=== PATIENT | female | born 1945 | race Caucasian/White ===

== ENCOUNTER 2020-02-20 15:56 | Outpatient (CLI) | payer OTHER, SELFPAY ==
--- NOTE | 2020-02-20 16:14 | ECG_ITS ---
Measurements Intervals [place] Rate: 94 P: 60 [place]: 191 QRS: 56 QRSD: 81 T: 35 QT: 344 QTc: 431 Interpretive Statements SINUS RHYTHM ATRIAL PREMATURE COMPLEX BASELINE ARTIFACT- I, II, AVR BORDERLINE ECG Electronically Signed On 02-21-2020 7:07:09 CDT by Mario Higgins D.O.
== END 2020-02-20 15:57 | disposition home or self-care (01) ==
PROVIDERS: PCP Family Medicine
DX: R06.09 Other forms of dyspnea (principal)
CPT/HCPCS: 93005

== ENCOUNTER 2020-03-11 12:59 | Outpatient (CLI) | payer OTHER, SELFPAY ==
--- NOTE | ~2020-03-11 | CT_ITS ---
EXAMINATION: CT abdomen pelvis wo/w con DATE: 03/11/2020 15:02 INDICATION: Microscopic hematuria TECHNIQUE: Computed tomography (CT) of the abdomen and pelvis was performed without intravenous contr ast. CT of the abdomen and pelvis was then performed with a total of 130 mL Omnipaque 350 intravenous contrast using a double-bolus technique for simultaneous opacification of the renal parenchyma and r enal collecting system. The dose-length product (DLP) was 2946.86 mGy-cm. Automated exposure control and iterative reconstruction technique were employed. COMPARISON: 07/17/2019 FINDINGS: There are stable nodules of the left lower lobe measuring up to 5 mm, likely benign. Depend ent atelectasis is noted. There is cardiomegaly. A small sliding hiatal hernia is seen. There are carmen gical changes of the stomach. The liver, pancreas, and adrenal glands are normal. Punctate calcificat ions in an otherwise normal spleen likely represent healed granulomatous disease. The gallbladder is surgically absent. No suspicious renal or urothelial lesion is identified. No stones are identified i n the kidneys, ureters, or bladder. There is no hydronephrosis or hydroureter. An extrarenal pelvis i s noted on the right. There is severe lumbar spondylosis. There is a stable 2.4 cm rim calcified mass in the anterior midline subcutaneous tissues, consistent with fat necrosis. There are multiple ventr al hernias containing fat. IMPRESSION: 1. No CT correlate for the patient's symptoms. Reviewed, dictated and finalized at location A.
--- NOTE | ~2020-03-11 | XR_ITS ---
EXAMINATION: XR abdomen/kub 1V INDICATION: Microscopic hematuria TECHNIQUE: Supine views of the abdomen were obtained on 2 radiographs. COMPARISON: None FINDINGS: Surgical changes are noted in the left upper quadrant. No abnormal calcification is identif ied. The bowel gas pattern is normal. The visualized lung bases are clear. There is severe lumbar spo ndylosis. IMPRESSION: 1. No radiographic correlate for the patient's symptoms. Reviewed, dictated and finalized at location A.
[2020-03-11 14:33] LABS: Estimated Glomerular Filt Rate > 60
== END 2020-03-11 13:00 | disposition home or self-care (01) ==
PROVIDERS: PCP Family Medicine; Visit Provider Urology
DX: R31.29 Other microscopic hematuria (principal)
CPT/HCPCS: 36415; 74018; 74178; Q9967

== ENCOUNTER 2020-07-18 08:33 | Emergency (ER) | payer OTHER, SELFPAY ==
[2020-07-18] VITALS (29 sets, daily range): BP systolic 136–175; BP diastolic 72–98; PULSE 63–98; RESP 12–37; TEMP 36.6; O2SAT 92–98
--- NOTE | ~2020-07-18 | CT_ITS ---
EXAMINATION: CT abdomen pelvis w con DATE: 07/18/2020 10:13 INDICATION: Abdominal pain TECHNIQUE: Computed tomography (CT) of the abdomen and pelvis was performed with 100 cc Omnipaque 350 intravenous contrast. The dose-length product was 1494.86 mGy-cm. Automated exposure control and ite rative reconstruction technique were employed. COMPARISON: CT dated 03/11/2020. FINDINGS: Heart size normal. No significant pleural or pericardial effusion. There are surgical colvin es of the stomach. The liver, spleen, pancreas, adrenal glands and kidneys are unremarkable. There ar e multiple small fat-containing ventral hernias including an umbilical hernia. Gallbladder not identi fied, likely surgically absent. No lymphadenopathy. Stable 5 mm left lower lobe nodule, likely benign . Stable rim calcified soft tissue nodule anterior midline subcutaneous tissues, likely fat necrosis. Moderate lower thoracic and lumbar spondylosis. IMPRESSION: 1. No acute abnormality. No findings to account for patient's symptoms. Reviewed, dictated and finalized at location A.
--- NOTE | 2020-07-18 09:11 | ECG_ITS ---
Measurements Intervals [place] Rate: 84 P: 38 [place]: 158 QRS: 60 QRSD: 88 T: 23 QT: 383 QTc: 454 Interpretive Statements SINUS RHYTHM WITH SINUS ARRHYTHMIA BORDERLINE ST ABNORMALITY- ANTEROLAT/INF LEADS BASELINE ARTIFACT- I, III BORDERLINE ECG Electronically Signed On 07-18-2020 20:01:32 CDT by Mario Higgins D.O.
[2020-07-18 09:22] LABS: Basophils Absolute Auto 0.1 K/mm3 (0.0-0.1); Basophils Percent Auto 1.4 % (0.2-1.2); Eosinophils Absolute Auto 0.2 K/mm3 (0-0.3); Eosinophils Percent Auto 3.7 % (0-4.4); Hematocrit 38.3 % (37.0-47.0); Hemoglobin 11.9 g/dL (12.0-15.0); Immature Granulocyte Absolute 0.01 K/mm3 (0.00-0.031); Immature Granulocyte Percent A 0.2 % (0-0.5); Lymphocytes Absolute Auto 1.86 K/mm3 (0.9-3.2); Lymphocytes Percent Auto 32.5 % (18.3-44.2); Mean Corpuscular HGB Conc 31.1 g/dl (32-36); Mean Corpuscular Hemoglobin 28.7 pg (26-34); Mean Corpuscular Volume 92.3 fl (80-100); Mean Platelet Volume 12.2 fl (7.4-10.4); Monocytes Absolute Auto 0.7 K/mm3 (0.1-0.6); Monocytes Percent Auto 11.4 % (2.6-8.5); Neutrophils Absolute Auto 2.9 K/mm3 (1.3-6.7); Neutrophils Percent Auto 50.8 % (45.5-73.1); Platelet Count Result 232 k/mm3 (150-375); Red Blood Count 4.15 M/mm3 (4.2-5.4); Red Cell Distribution Width 14.4 % (11.5-14.5); White Blood Count 5.7 K/mm3 (4.5-10.0)
[2020-07-18] MEDS: BELLADONNA ALK/PHENOB ELIX 10 ML, MAG HYDROX/ALUMINUM HYD/SIMETH 30 ML, LIDOCAINE HCL 2... PO (09:22)
[2020-07-18 09:35] LABS: Alanine Aminotransferase 11 U/L (4-35); Albumin Level 3.9 g/dL (3.5-5.1); Alkaline Phosphatase 106 U/L (38-126); Anion Gap 7 mmol/L (8-16); Aspartate Amino Transferase 23 U/L (14-36); Bilirubin,Total 0.7 mg/dL (0.2-1.3); Blood Urea Nitrogen 17 mg/dL (7-17); Calcium 8.7 mg/dL (8.4-10.2); Carbon Dioxide 26 mmol/L (22-30); Chloride 102 mmol/L (98-107); Estimated CRCL calculation 72 ml/min; Estimated Glomerular Filt Rate > 60; Glucose 95 mg/dL (65-105); Lipase 59 U/L (23-300); Potassium 3.9 mmol/L (3.4-5.0); Sodium 135 mmol/L (137-145)
--- NOTE | 2020-07-18 09:36 | ED.GENADULT ---
HPI - General Adult General Chief complaint: Chest Pain Stated complaint: Chest and ABD Pain Time Seen by Provider: 07/18/20 08:52 Source: patient History of Present Illness HPI narrative: Patient is a 75 y/o female complaining of intermittent epigastric pain for 1 week. She describes her pain as burning sensation and rates it as 7/10. Her pain radiates to her chest pain. There is no alleviating or exacerbating factor. She took laxative which did not help. She denies any vomiting or diarrhea. Related Data Home Medications Medication Instructions Recorded Confirmed furosemide 40 mg tablet 40 mg PO QAM PRN 10/27/19 02/02/20 indapamide 2.5 mg tablet 2.5 mg PO DAILY 10/27/19 02/02/20 magnesium 200 mg tablet See Rx Instructions PO DAILY 10/27/19 02/02/20 vitamin B12 1,000 mcg-folic acid 1 tablet SUBLINGUAL DAILY tablet 10/27/19 02/02/20 400 mcg sublingual tablet metoprolol succinate PO DAILY 07/18/20 Allergies Allergy/AdvReac Type Severity Reaction Status Date / Time No Known Allergies Allergy Verified 07/18/20 08:52 Review of Systems Constitutional: Constitutional: Denies chills, Denies fever(s), Denies headache(s) and Denies weakness Eyes: Eyes: Denies blurry vision ENT: Denies headache(s) and Denies neck pain Cardiovascular: Cardiovascular: Reports chest pain and Denies dyspnea Respiratory: Respiratory: Denies cough and Denies dyspnea Gastrointestinal: Gastrointestinal: Reports abdominal pain, Denies diarrhea, Denies nausea and Denies vomiting Genitourinary: Genitourinary: Denies hematuria and Denies dysuria Musculoskeletal: Musculoskeletal: Denies back pain and Denies neck pain Neurologic: Denies headache(s) and Denies weakness [facility] Past Medical History Medical History Bilateral knee pain Essential (primary) hypertension Left upper arm pain Normal colonoscopy (~07/2019) Sleep apnea Surgical History Surgical History History of foot surgery (~02/2017) Left History of gastric bypass (~1999) History of tubal ligation (~1979) Family History Family History Mother Family history of arthritis Family history of diabetes mellitus in first degree relative Family history of congestive heart failure Family history of heart disease in male family member before age 55 Carcinoma of colon Sibling Family history of diabetes mellitus in first degree relative Family history of coronary artery disease Family history of heart disease in male family member before age 55 Diabetes mellitus Cerebrovascular accident Family history of malignant neoplasm of breast in first degree relative Grandparent Diabetes mellitus Asthma Family history of malignant neoplasm Carcinoma of colon Father Family history of lung cancer Other Depression Family history of obesity Hypertension Social History Social History Smoking status: Never smoker Second hand tobacco smoke exposure: No Alcohol intake: never Substance use: never Gender identity (if verbalized by the patient): Female Exam Const: General: no acute distress and well developed Nutritional Appearance: obese Orientation/consciousness: oriented to person, oriented to place, oriented to time and patient oriented x3 HENMT: Head: normocephalic Ears: external ears normal General nose exam: Normal external nose present Eyes: General: appearance normal, both eyes and all related structures Conjunctivae: conjunctivae normal Neck: Neck: normal visual inspection and full ROM Chest: Chest palpation & inspection: normal inspection of the chest and no tenderness Resp: Effort & Inspection: normal respiratory effort Auscultation: clear to auscultation bilaterally Cardio: Rate: regular rate Rhythm: regular rhythm GI: GI Palp: No ab
[2020-07-18 09:47] LABS: Troponin I < 0.012 ng/mL (0.000-0.034)
[2020-07-18 10:28] LABS: Add Urine Microscopic? YES; Appearance Urine Cloudy (Clear); Bacteria Urine Trace /hpf; Bilirubin Urine Negative (Negative); Blood Urine 1+ (Negative); Color Urine Yellow (Yellow); Glucose Urine UA Negative (Negative); Ketones Urine Negative (Negative); Leukocyte Esterase Ur 3+ LEU/UL (Negative); Mucus Urine Rare /lpf; Nitrate Urine Negative (Negative); Protein Urine Negative (Negative); RBC Urine 21-50 /hpf (0-2); Specific Grav Ur 1.011 (1.001-1.035); Squamous Epithelial Cell Urine Moderate /hpf (Few); Urobilinogen Urine Negative mg/dL (<2.0); WBC Urine 16-20 /hpf
[2020-07-18 12:43] LABS: Troponin I < 0.012 ng/mL (0.000-0.034)
== END 2020-07-18 14:05 | disposition home or self-care (01) ==
PROVIDERS: Emergency Provider Emergency Medicine; PCP Family Medicine
DX: R10.13 Epigastric pain (principal); R07.9 Chest pain, unspecified; N39.0 Urinary tract infection, site not specified; I10 Essential (primary) hypertension; G47.30 Sleep apnea, unspecified; Z98.84 Bariatric surgery status; R94.31 Abnormal electrocardiogram [ECG] [EKG]
CPT/HCPCS: 36415; 74177; 80053; 81001; 83690; 84484; 85025; 87086; 87088; 93005; 99284; A9270; Q9967

== ENCOUNTER 2020-07-27 02:41 | Outpatient (CLI) | payer OTHER, SELFPAY ==
[2020-07-27 18:16] LABS: SARS-CoV-2 RNA PCR Negative
== END 2020-07-27 02:42 | disposition home or self-care (01) ==
LOC: ANHCOVIDDT 02:41
PROVIDERS: PCP Family Medicine; Visit Provider Internal Medicine Gastroenterology
DX: Z01.812 Encounter for preprocedural laboratory examination (principal); Z20.828 Contact with and (suspected) exposure to other viral communicable diseases
CPT/HCPCS: 87635; C9803; U0003

== ENCOUNTER 2020-07-29 00:25 | Day surgery (SDC) | payer OTHER, SELFPAY ==
[2020-07-21 15:43] VITALS: BMI 58.6
[2020-07-29] MEDS: LACTATED RINGERS 1,000 ML 150 ML IV CONT (08:28)
[2020-07-29 08:29] VITALS: BP 148/82; PULSE 80; RESP 16; TEMP 36.1; O2SAT 98; BMI 56.9
--- NOTE | 2020-07-29 08:57 | WPDANESEPPF ---
Anes - Initial Pre Proc Eval Procedure: Operation Date: 07/29/20 09:30 Proposed Procedures p Esophagogastroduodenoscopy & Screening Colonoscopy - Pepito Gallego MD Date/Time: 07/29/20 08:57 Surgeon: Pepito Gallego MD Pre Op Diagnosis: gastritis, neoplasm screening Patient Data Age: 75 Gender: F Height: 5 ft 4 in Weight: 150.6 kg Last Vital Signs Temp 96.9 F L 07/29/20 08:29 Pulse 80 07/29/20 08:29 Resp 16 07/29/20 08:29 BP 148/82 H 07/29/20 08:29 Pulse Ox 98 07/29/20 08:29 Allergies Allergy/AdvReac Type Severity Reaction Status Date / Time No Known Allergies Allergy Verified 07/29/20 08:17 Home Medications Medication Instructions Recorded Confirmed Type furosemide 40 mg tablet 40 mg PO QAM PRN 10/27/19 07/23/20 History magnesium 200 mg tablet See Rx Instructions PO DAILY 10/27/19 07/23/20 History vitamin B12 1,000 mcg-folic acid 1 tablet SUBLINGUAL DAILY tablet 10/27/19 07/23/20 History 400 mcg sublingual tablet albuterol sulfate 90 mcg/actuation 2 puff INHALATION Q4-6H PRN #8 gm 02/02/20 07/23/20 Rx aerosol inhaler baclofen 10 mg tablet See Rx Instructions .ROUTE 07/08/20 07/23/20 Rx .COMPLEX #90 tablet metoprolol succinate PO DAILY 07/18/20 07/23/20 History nitrofurantoin monohyd/m-cryst 100 mg PO Q12H 7 Days #14 cap 07/18/20 07/23/20 Rx [Macrobid] celecoxib 200 mg capsule 200 mg PO BID cap 07/20/20 07/23/20 History omeprazole 20 mg capsule,delayed 20 mg PO BID #60 cap 07/20/20 07/23/20 Rx release cetirizine 10 mg capsule 10 mg PO DAILY #30 cap 07/21/20 07/21/20 Rx Patient hx anesthesia problems: none Family hx anesthesia problems: none PMFSH Past Medical History Medical History (Updated 07/23/20 @ 11:49 by Barbara iBanchi NP) Bilateral knee pain Dyspnea on exertion Essential (primary) hypertension Frequent urination GERD without esophagitis Left upper arm pain Normal colonoscopy (~07/2019) Sleep apnea Surgical History Surgical History History of foot surgery (~02/2017) Left History of gastric bypass (~1999) History of tubal ligation (~1979) Family History Family History Mother Family history of arthritis Family history of diabetes mellitus in first degree relative Family history of congestive heart failure Family history of heart disease in male family member before age 55 Carcinoma of colon Sibling Family history of diabetes mellitus in first degree relative Family history of coronary artery disease Family history of heart disease in male family member before age 55 Diabetes mellitus Cerebrovascular accident Family history of malignant neoplasm of breast in first degree relative Grandparent Diabetes mellitus Asthma Family history of malignant neoplasm Carcinoma of colon Father Family history of lung cancer Other Depression Family history of obesity Hypertension Social History Social History Smoking status: Never smoker Second hand tobacco smoke exposure: No Alcohol intake: never Substance use: never Living arrangements: alone Gender identity (if verbalized by the patient): Female Anes - Eval Final PreProcedure Day of Procedure 07/29/20 08:57 Patient weight: super morbidly obese Heart: regular rate and rhythm Lungs: clear to auscultation Airway: Mallampati scale class III Neurological: alert and oriented Last oral intake: >/= 8 hours ASA classification: IV Emergent: no Anesthetic plan: proceed Anesthesia type and monitoring: general GIVS and standard monitoring Informed Consent: The patient's anesthetic plan and its attendant risks and benefits were discussed with the patient/family/POA. Questions were solicited and answers provided to the satisfaction of the patient/family/POA.
--- NOTE | 2020-07-29 09:10 | PM.HPGS ---
History of Present Illness History of Present Illness Consent: Risks, benefits, and alternatives have been discussed and questions answered. Patient agrees to proceed with procedure. Chief complaint: gastritis, neoplasm screening Narrative: Cassy Luna is a 75 year old female [facility] Past Medical History Medical History (Updated 07/23/20 @ 11:49 by Barbara Bianchi NP) Bilateral knee pain Dyspnea on exertion Essential (primary) hypertension Frequent urination GERD without esophagitis Left upper arm pain Normal colonoscopy (~07/2019) Sleep apnea Surgical History Surgical History History of foot surgery (~02/2017) Left History of gastric bypass (~1999) History of tubal ligation (~1979) Family History Family History Mother Family history of arthritis Family history of diabetes mellitus in first degree relative Family history of congestive heart failure Family history of heart disease in male family member before age 55 Carcinoma of colon Sibling Family history of diabetes mellitus in first degree relative Family history of coronary artery disease Family history of heart disease in male family member before age 55 Diabetes mellitus Cerebrovascular accident Family history of malignant neoplasm of breast in first degree relative Grandparent Diabetes mellitus Asthma Family history of malignant neoplasm Carcinoma of colon Father Family history of lung cancer Other Depression Family history of obesity Hypertension Social History Social History Smoking status: Never smoker Second hand tobacco smoke exposure: No Alcohol intake: never Substance use: never Living arrangements: alone Gender identity (if verbalized by the patient): Female Meds Home Medications and Allergies Home Medications Medication Instructions Recorded Confirmed Type furosemide 40 mg tablet 40 mg PO QAM PRN 10/27/19 07/23/20 History magnesium 200 mg tablet See Rx Instructions PO DAILY 10/27/19 07/23/20 History vitamin B12 1,000 mcg-folic acid 1 tablet SUBLINGUAL DAILY tablet 10/27/19 07/23/20 History 400 mcg sublingual tablet albuterol sulfate 90 mcg/actuation 2 puff INHALATION Q4-6H PRN #8 gm 02/02/20 07/23/20 Rx aerosol inhaler baclofen 10 mg tablet See Rx Instructions .ROUTE 07/08/20 07/23/20 Rx .COMPLEX #90 tablet metoprolol succinate PO DAILY 07/18/20 07/23/20 History nitrofurantoin monohyd/m-cryst 100 mg PO Q12H 7 Days #14 [facility] 07/18/20 07/23/20 Rx [Macrobid] celecoxib 200 mg capsule 200 mg PO BID [facility] 07/20/20 07/23/20 History omeprazole 20 mg capsule,delayed 20 mg PO BID #60 [facility] 07/20/20 07/23/20 Rx release cetirizine 10 mg capsule 10 mg PO DAILY #30 [facility] 07/21/20 07/21/20 Rx Allergies Allergy/AdvReac Type Severity Reaction Status Date / Time No Known Allergies Allergy Verified 07/29/20 08:17 Vital Signs Vital Signs - 24 hr 07/29/20 08:29 Temperature 36.1 C L Pulse Rate 80 Respiratory Rate 16 Blood Pressure 148/82 H Pulse Oximetry 98
--- NOTE | 2020-07-29 09:10 | PM.HPGS ---
History of Present Illness History of Present Illness Consent: Risks, benefits, and alternatives have been discussed and questions answered. Patient agrees to proceed with procedure. Chief complaint: gastritis, neoplasm screening Narrative: Cassy Luna is a 75 year old W female referred for EGD and colonoscopy. Patient undergoing EGD for secondary to recent onset several weeks ago persistent heartburn and atypical chest pain. This improved with Prilosec 40 mg daily. Patient has had a previous gastric bypass with a Alonso-en-Y procedure. I instructed the patient on anti reflux measures And weight loss. Patient is morbidly obese. Patient undergoing colonoscopy for surveillance examination. There is no family history of colon cancer her mother had pancreatic cancer. Last colonoscopy was over 10 years ago. PENDING SALE TO [facility] Past Medical History Medical History Bilateral knee pain Dyspnea on exertion Essential (primary) hypertension Frequent urination GERD without esophagitis Left upper arm pain Normal colonoscopy (~07/2019) Sleep apnea Surgical History Surgical History History of foot surgery (~02/2017) Left History of gastric bypass (~1999) History of tubal ligation (~1979) Family History Family History Mother Family history of arthritis Family history of diabetes mellitus in first degree relative Family history of congestive heart failure Family history of heart disease in male family member before age 55 Carcinoma of colon Sibling Family history of diabetes mellitus in first degree relative Family history of coronary artery disease Family history of heart disease in male family member before age 55 Diabetes mellitus Cerebrovascular accident Family history of malignant neoplasm of breast in first degree relative Grandparent Diabetes mellitus Asthma Family history of malignant neoplasm Carcinoma of colon Father Family history of lung cancer Other Depression Family history of obesity Hypertension Social History Social History Smoking status: Never smoker Second hand tobacco smoke exposure: No Alcohol intake: never Substance use: never Living arrangements: alone Gender identity (if verbalized by the patient): Female Meds Home Medications and Allergies Home Medications Medication Instructions Recorded Confirmed Type furosemide 40 mg tablet 40 mg PO QAM PRN 10/27/19 07/23/20 History magnesium 200 mg tablet See Rx Instructions PO DAILY 10/27/19 07/23/20 History vitamin B12 1,000 mcg-folic acid 1 tablet SUBLINGUAL DAILY tablet 10/27/19 07/23/20 History 400 mcg sublingual tablet albuterol sulfate 90 mcg/actuation 2 puff INHALATION Q4-6H PRN #8 gm 02/02/20 07/23/20 Rx aerosol inhaler baclofen 10 mg tablet See Rx Instructions .ROUTE 07/08/20 07/23/20 Rx .COMPLEX #90 tablet metoprolol succinate PO DAILY 07/18/20 07/23/20 History nitrofurantoin monohyd/m-cryst 100 mg PO Q12H 7 Days #14 cap 07/18/20 07/23/20 Rx [Macrobid] celecoxib 200 mg capsule 200 mg PO BID cap 07/20/20 07/23/20 History omeprazole 20 mg capsule,delayed 20 mg PO BID #60 cap 07/20/20 07/23/20 Rx release cetirizine 10 mg capsule 10 mg PO DAILY #30 cap 07/21/20 07/21/20 Rx Allergies Allergy/AdvReac Type Severity Reaction Status Date / Time No Known Allergies Allergy Verified 07/29/20 08:17 Vital Signs Vital Signs - 24 hr 07/29/20 08:29 Temperature 36.1 C L Pulse Rate 80 Respiratory Rate 16 Blood Pressure 148/82 H Pulse Oximetry 98 Exam Const: Orientation/consciousness: patient oriented x3 Resp: Auscultation: clear to auscultation bilaterally Cardio: Rate: regular rate Rhythm: regular rhythm Heart sounds: no murmurs GI: GI Palp: Yes Soft to palpation, No Te
[2020-07-29 10:42] VITALS: BP 120/55; PULSE 75; RESP 20; O2SAT 99
[2020-07-29 10:52] VITALS: BP 112/54; PULSE 71; RESP 22; O2SAT 99
[2020-07-29 11:02] VITALS: BP 148/76; PULSE 69; RESP 24; O2SAT 99
== END 2020-07-29 11:15 | disposition home or self-care (01) ==
PROVIDERS: PCP Family Medicine; Visit Provider Internal Medicine Gastroenterology
PROC: 0DJ08ZZ Inspection of Upper Intestinal Tract, Via Natural or Artificial Opening Endoscopic (ICD-10-PCS; CPT 43235; principal; 2020-07-29 09:30)
DX: Z12.11 Encounter for screening for malignant neoplasm of colon (principal); K21.9 Gastro-esophageal reflux disease without esophagitis; K64.8 Other hemorrhoids; K64.4 Residual hemorrhoidal skin tags; R07.89 Other chest pain; Z98.84 Bariatric surgery status; E66.01 Morbid (severe) obesity due to excess calories; Z68.43 Body mass index [BMI] 50.0-59.9, adult; Z80.8 Family history of malignant neoplasm of other organs or systems; R06.09 Other forms of dyspnea; I10 Essential (primary) hypertension; Z83.71 Family history of colonic polyps; Z80.3 Family history of malignant neoplasm of breast; Z83.3 Family history of diabetes mellitus; Z82.49 Family history of ischemic heart disease and other diseases of the circulatory system; Z80.1 Family history of malignant neoplasm of trachea, bronchus and lung
CPT/HCPCS: 43235; G0121; J2704; J7120

== ENCOUNTER 2020-07-30 14:39 | Outpatient (CLI) | payer OTHER, SELFPAY ==
--- NOTE | ~2020-07-30 | XR_ITS ---
EXAMINATION: XR chest 2V DATE: 07/30/2020 15:18 INDICATION: Dyspnea TECHNIQUE: frontal and lateral views of the chest were obtained. COMPARISON: Chest radiograph dated 08/02/2017 FINDINGS: Calcified nodule in the left upper lung zone consistent with old granulomatous disease. No focal airs pace opacities, pulmonary edema, pleural effusion or pneumothorax. The cardiomediastinal silhouette i s normal. Moderate to severe thoracic spondylosis. IMPRESSION: 1. No acute cardiopulmonary disease. Reviewed, dictated and finalized at location A.
== END 2020-07-30 14:40 ==
PROVIDERS: PCP Family Medicine; Visit Provider Nurse Practitioner Family
DX: R06.00 Dyspnea, unspecified (principal)
CPT/HCPCS: 71046

== ENCOUNTER → 2021-01-04 11:44 | Outpatient (CLI) | payer OTHER, SELFPAY ==
--- NOTE | ~2021-01-04 | XR_ITS ---
EXAMINATION: XR ankle LT min 3V EXAM DATE: 01/04/2021 12:13 INDICATION: No known recent injury provided at this time. Pain of the left ankle. Limited range of mo tion. History of arthroscopy, some bone fragments cleared out. TECHNIQUE: Left ankle frontal, lateral and oblique projections obtained and reviewed. Correlation is made to left foot exam 2014. FINDINGS: There is been interval development of near complete loss of the ankle joint space at the p darrel and with subchondral cyst formation and/or osteochondral defects. Slight flattening of the tunde ar dome suspected at regions. No ossified joint body specifically identified. Small inferior calcane al spur. There are no acute fractures identified. IMPRESSION: 1. Development of advanced left ankle osteoarthritis. Reviewed, dictated and finalized at location A.
--- NOTE | ~2021-01-04 | XR_ITS ---
EXAMINATION: XR knee RT min 4V DATE: 01/04/2021 12:13 INDICATION: Right knee pain. TECHNIQUE: 4 views of right knee were obtained. COMPARISON: Right knee radiographs 07/08/2010 FINDINGS: Bone alignment is normal. No fracture. There is severe osteoarthritis of medial and lateral compartments and mild osteoarthritis of patellofemoral compartment. No knee joint effusion. IMPRESSION: 1. Severe right knee osteoarthritis. Reviewed, dictated and finalized at location A.
--- NOTE | ~2021-01-04 | XR_ITS ---
EXAMINATION: XR knee LT min 4V DATE: 01/04/2021 12:13 INDICATION: Left knee pain. TECHNIQUE: 4 views of left knee were obtained. COMPARISON: None. FINDINGS: Bone alignment is normal. No fracture. There is severe osteoarthritis of lateral compartmen t, moderate osteoarthritis of medial compartment, and mild osteoarthritis of patellofemoral compartme nt. No knee joint effusion. IMPRESSION: 1. Severe left knee osteoarthritis. Reviewed, dictated and finalized at location A.
== END ==
PROVIDERS: PCP Family Medicine; Visit Provider Nurse Practitioner Family
DX: M19.072 Primary osteoarthritis, left ankle and foot (principal); M17.0 Bilateral primary osteoarthritis of knee
CPT/HCPCS: 73564; 73610

== ENCOUNTER 2021-03-13 16:15 | Emergency (ER) | payer OTHER, SELFPAY ==
[2021-03-13 16:37] VITALS: BP 168/93; PULSE 85; RESP 20; TEMP 36.6; O2SAT 97
[2021-03-13 17:38] VITALS: BP 154/86; PULSE 87; RESP 18; TEMP 36.1; O2SAT 99
[2021-03-13 18:09] LABS: Add Urine Microscopic? YES; Appearance Urine Cloudy (Clear); Bilirubin Urine Negative (Negative); Blood Urine 2+ (Negative); Color Urine Yellow (Yellow); Glucose Urine UA Negative (Negative); Ketones Urine Negative (Negative); Leukocyte Esterase Ur 3+ LEU/UL (Negative); Mucus Urine Rare /lpf; Nitrate Urine Negative (Negative); Protein Urine Negative (Negative); Specific Grav Ur 1.018 (1.001-1.035); Squamous Epithelial Cell Urine Rare /hpf (Few); Urobilinogen Urine Negative mg/dL (<2.0); WBC Clumps Urine Present /HPF; WBC Urine >75 /hpf
[2021-03-13 18:38] LABS: Basophils Absolute Auto 0.1 K/mm3 (0.0-0.1); Basophils Percent Auto 1.1 % (0.2-1.2); Eosinophils Absolute Auto 0.2 K/mm3 (0-0.3); Eosinophils Percent Auto 2.3 % (0-4.4); Immature Granulocyte Absolute 0.03 K/mm3 (0.00-0.031); Immature Granulocyte Percent A 0.4 % (0-0.5); Lymphocytes Absolute Auto 1.37 K/mm3 (0.9-3.2); Lymphocytes Percent Auto 16.7 % (18.3-44.2); Mean Corpuscular HGB Conc 30.6 g/dl (32-36); Mean Platelet Volume 11.3 fl (7.4-10.4); Monocytes Absolute Auto 0.6 K/mm3 (0.1-0.6); Monocytes Percent Auto 7.7 % (2.6-8.5); Neutrophils Absolute Auto 5.9 K/mm3 (1.3-6.7); Neutrophils Percent Auto 71.8 % (45.5-73.1); Platelet Count Result 237 k/mm3 (150-375); Red Blood Count 3.79 M/mm3 (4.2-5.4); White Blood Count 8.2 K/mm3 (4.5-10.0)
[2021-03-13 18:50] LABS: Anion Gap 3 mmol/L (8-16); Blood Urea Nitrogen 18 mg/dL (7-17); Calcium 8.8 mg/dL (8.4-10.2); Carbon Dioxide 26 mmol/L (22-30); Chloride 108 mmol/L (98-107); Estimated CRCL calculation 71 ml/min; Estimated Glomerular Filt Rate > 60; Glucose 102 mg/dL (65-105); Potassium 4.2 mmol/L (3.4-5.0); Sodium 137 mmol/L (137-145)
[2021-03-13 19:19] VITALS: BP 149/80; PULSE 88; RESP 18; TEMP 36.1; O2SAT 98
--- NOTE | 2021-03-13 19:43 | ED.GENADULT ---
HPI - General Adult General Chief complaint: Urogenital-Female Stated complaint: UTI?/headaches Time Seen by Provider: 03/13/21 17:22 History of Present Illness HPI narrative: Patient is a 75-year-old female who presents ER with urinary frequency and urgency. She has lower abdominal pressure. Ongoing over the last day. This is making her feel really well. She has tried taking Azo. No fevers or chills or sweats. Reports mild back discomfort. Similar to previous UTIs. Related Data Home Medications Medication Instructions Recorded Confirmed furosemide 40 mg tablet 40 mg PO QAM PRN 10/27/19 02/07/21 magnesium 200 mg tablet See Rx Instructions PO DAILY 10/27/19 02/07/21 vitamin B12 1,000 mcg-folic acid 1 tablet SUBLINGUAL DAILY tablet 10/27/19 02/07/21 400 mcg sublingual tablet metoprolol succinate PO DAILY 07/18/20 02/07/21 baclofen 10 mg tablet See Rx Instructions .ROUTE 08/31/20 02/07/21 .COMPLEX PRN tablet cetirizine 10 mg tablet See Rx Instructions .ROUTE 08/31/20 02/07/21 .COMPLEX PRN tablet Allergies Allergy/AdvReac Type Severity Reaction Status Date / Time No Known Allergies Allergy Verified 02/07/21 10:21 Review of Systems Review of Systems: All systems reviewed & are unremarkable except as noted in HPI and below Constitutional: Constitutional: Denies chills and Denies fever(s) ENT: Denies nasal congestion and Denies sore throat Gastrointestinal: Gastrointestinal: Denies abdominal pain, Denies nausea and Denies vomiting Genitourinary: Genitourinary: Denies hematuria, Reports nocturia, Reports dysuria, Reports flank pain, Denies urinary incontinence and Denies vaginal discharge [facility] Past Medical History Medical History Bilateral knee pain Dyspnea on exertion Essential (primary) hypertension Frequent urination GERD without esophagitis Left upper arm pain Lumbar spondylosis Normal colonoscopy (~07/2019) Sleep apnea Surgical History Surgical History History of foot surgery (~02/2017) Left History of gastric bypass (~1999) History of tubal ligation (~1979) Family History Family History Mother Family history of arthritis Family history of diabetes mellitus in first degree relative Family history of congestive heart failure Family history of heart disease in male family member before age 55 Carcinoma of colon Sibling Family history of diabetes mellitus in first degree relative Family history of coronary artery disease Family history of heart disease in male family member before age 55 Diabetes mellitus Cerebrovascular accident Family history of malignant neoplasm of breast in first degree relative Grandparent Diabetes mellitus Asthma Family history of malignant neoplasm Carcinoma of colon Father Family history of lung cancer Other Depression Family history of obesity Hypertension Social History Social History Smoking status: Never smoker Second hand tobacco smoke exposure: No Alcohol intake: never Substance use: never Gender identity (if verbalized by the patient): Female Exam Narrative: Exam Narrative: GENERAL: Well-appearing, morbidly obese, and in no acute distress. HEAD: Normocephalic, atraumatic. ENT: Mucous membranes moist. CHEST: Clear to auscultation. No respiratory distress. HEART: Regular rate and rhythm. Normal peripheral pulses. ABDOMEN: Soft, nontender, nondistended. EXTREMITIES: Normal range of motion. No edema. SKIN: Warm, dry, no rash. NEURO: Alert and oriented x3. Course Course Emergency Course: Patient informed results. Received ceftriaxone. Discharge home. Vital Signs Vital signs: Vital Signs Temperature 98 F 03/13/21 16:37 Pulse Rate 85 03/13/21 16:37 Respiratory Rate 20 03/13/21 16:37 Blo
== END 2021-03-13 19:45 | disposition home or self-care (01) ==
PROVIDERS: Emergency Provider Emergency Medicine; PCP Family Medicine
DX: N39.0 Urinary tract infection, site not specified (principal); I10 Essential (primary) hypertension; K21.9 Gastro-esophageal reflux disease without esophagitis; G47.30 Sleep apnea, unspecified; Z98.84 Bariatric surgery status
CPT/HCPCS: 36415; 51701; 80048; 81001; 85025; 87077; 87086; 87088; 87186; 96365; 99284; J0696

== ENCOUNTER 2021-05-25 10:32 | Emergency (ER) | payer OTHER, SELFPAY ==
--- NOTE | ~2021-05-25 | CT_ITS ---
EXAMINATION: CT brain wo con DATE: 05/25/2021 12:08 INDICATION: Fall. Right ear pain. TECHNIQUE: Computed tomography (CT) of the head was performed without intravenous contrast. The mA wa s adjusted according to patient size. Iterative reconstruction technique was employed. Exam dose: 60 5.33 mGy-cm total exam DLP. COMPARISON: None FINDINGS: No intracranial mass lesion or hemorrhage or cerebrovascular accident is detected. No midli ne shift or mass effect. No subdural or epidural hematoma. Bilateral carotid siphon internal carotid artery calcification. No fracture or bone destruction of the cranial vault. The mastoid air cells and paranasal sinuses are normally developed and aerated. IMPRESSION: Cerebral atherosclerosis No acute intracranial abnormality or skull fracture Reviewed, dictated and finalized at [facility]. Reviewed, dictated and finalized at location B.
--- NOTE | ~2021-05-25 | CT_ITS ---
EXAMINATION: CT cervical spine wo con DATE: 05/25/2021 12:08 INDICATION: Fall. Right ear pain. TECHNIQUE: Computed tomography (CT) of the cervical spine was performed without intravenous contrast. Automated exposure control and iterative reconstruction technique were employed. Exam dose: 500.61 mGy-cm total exam DLP. COMPARISON: None FINDINGS: There is straightening of the cervical spine which may be due to positioning and/or muscle spasm. C1 and C2 are normally aligned and the odontoid process is intact. No fracture or dislocation or locked facet or prevertebral soft tissue swelling is evident. There is severe degenerative disc disease at C3-4 through C6-7. There is degenerative change at the apophyseal joints throughout the cervical spine. Uncovertebral kwame int spurring is noted in the mid and lower cervical spine.. IMPRESSION: Straightening of cervical spine which may be due to muscle spasm and/or positioning Extensive degenerative changes of the cervical spine No fracture or dislocation or locked facet Reviewed, dictated and finalized at [facility]. Reviewed, dictated and finalized at location B. IMPRESSION: Straightening of cervical spine which may be due to muscle spasm a nd/or positioning Extensive degenerative changes of the cervical spine No fracture or dislocation or locked facet
--- NOTE | ~2021-05-25 | XR_ITS ---
EXAMINATION: XR knee LT min 4V, XR knee RT min 4V DATE: 05/25/2021 12:54 INDICATION: Bilateral knee pain post fall TECHNIQUE: 1. Anteroposterior, 2 oblique and crosstable lateral views of the left knee were obtained 2. Anteroposterior, 2 oblique and crosstable lateral views of the right knee were obtained COMPARISON: None. FINDINGS: Alignment is normal at both knees. No fracture. Tricompartmental osteoarthritis of both knees with se annelise joint space narrowing at the medial compartment of the right knee and at least moderate severity joint space narrowing at the medial compartment of the left knee. Severity of joint space narrowing can however be underestimated on nonweightbearing imaging. Soft tissues are unremarkable. No joint ef fusion at either knee. IMPRESSION: 1. No right knee joint effusion or acute osseous abnormality 2. Tricompartmental osteoarthritis at both knees, severe on the right and at least moderate severity on the left. Reviewed, dictated and finalized at location A. IMPRESSION: 1. No right knee joint effusion or acute osseous abnormality 2. Tricompartmental osteoarthritis at both knees, severe on the right and at le ast moderate severity on the left.
[2021-05-25 10:39] VITALS: BP 154/100; PULSE 83; RESP 18; TEMP 36.7; O2SAT 99
[2021-05-25 11:14] VITALS: BP 171/83; PULSE 91; RESP 22; O2SAT 98
--- NOTE | 2021-05-25 11:19 | ECG_ITS ---
Measurements Intervals [place] Rate: 78 P: 70 RI: 164 QRS: 106 QRSD: 85 T: 52 QT: 408 QTc: 466 Interpretive Statements SINUS RHYTHM BASELINE ARTIFACT- I, II, III, AVR, AVL, AVF, V1-V6 NORMAL ECG Electronically Signed On 05-25-2021 12:41:58 CDT by Mario Higgins D.O.
--- NOTE | 2021-05-25 11:31 | ED.FALL ---
HPI - Fall General Chief Complaint: Fall Stated Complaint: fall, laceration to head Time Seen by Provider: 05/25/21 11:11 History of Present Illness HPI Narrative: Patient walking down the stairs outside her daughter's house when she slipped and struck her head on the concrete. Patient reports she felt dazed but there is no loss of consciousness. She also reports bilateral knee pain. Patient denies any chest pain shortness of breath abdominal pain nausea or vomiting. Patient denies any prodrome to the event such as lightheadedness or dizziness. Patient denies any focal numbness or weakness. Patient ports her primary's concern or her head and both of her knees. Related Data Home Medications Medication Instructions Recorded Confirmed celecoxib mg 05/25/21 duloxetine mg PO 05/25/21 irbesartan mg 05/25/21 metoprolol succinate PO 05/25/21 Allergies Allergy/AdvReac Type Severity Reaction Status Date / Time No Known Allergies Allergy Verified 05/25/21 11:22 Review of Systems Review of Systems: CONSTITUTIONAL: Denies fever, chills, or sweats. EYES: Denies visual changes, redness, or discharge. ENT: Denies rhinorrhea, congestion, sore throat, or otalgia. CARDIOVASCULAR: Denies chest pain, palpitations, or edema. RESPIRATORY: Denies cough or dyspnea. GASTROINTESTINAL: Denies abdominal pain, nausea, vomiting, or diarrhea. GENITOURINARY: Denies dysuria or hematuria. SKIN: Denies rash or itching. MUSCULOSKELETAL: Denies back pain, joint pain, or myalgia. NEUROLOGIC: Denies numbness, dizziness, or weakness. PSYCHIATRIC: Denies anxiety or depression. All systems reviewed & are unremarkable except as noted in HPI and below PMFSH Past Medical History Medical History Bilateral knee pain Dyspnea on exertion Essential (primary) hypertension Frequent urination GERD without esophagitis Left upper arm pain Lumbar spondylosis Normal colonoscopy (~07/2019) Sleep apnea Surgical History Surgical History History of foot surgery (~02/2017) Left History of gastric bypass (~1999) History of tubal ligation (~1979) Family History Family History Mother Family history of arthritis Family history of diabetes mellitus in first degree relative Family history of congestive heart failure Family history of heart disease in male family member before age 55 Carcinoma of colon Sibling Family history of diabetes mellitus in first degree relative Family history of coronary artery disease Family history of heart disease in male family member before age 55 Diabetes mellitus Cerebrovascular accident Family history of malignant neoplasm of breast in first degree relative Grandparent Diabetes mellitus Asthma Family history of malignant neoplasm Carcinoma of colon Father Family history of lung cancer Other Depression Family history of obesity Hypertension Social History Social History Smoking status: Never smoker Second hand tobacco smoke exposure: No Alcohol intake: never Substance use: never Gender identity (if verbalized by the patient): Female Exam Narrative: GENERAL: Well-appearing, well-nourished, and in no acute distress. HEAD: Normocephalic, 3 cm laceration on the occiput with approximately 1 to 2 cm linear superficial laceration the right nose aspect is stellate and superficial with friable skin. Small hematoma noted no active bleeding EYES: PERRLA and EOMI. ENT: Nares clear, no rhinorrhea or epistaxis. Mucous membranes moist. No fractured teeth no blood in the oropharynx NECK: Supple. No masses. No JVD no posterior midline tenderness CHEST: Clear to auscultation. No respiratory distress. No wheezes rales or rhonchi HEART: Regular rate and rhythm. No murmur heard. Normal peripheral
[2021-05-25 11:57] LABS: Basophils Absolute Auto 0.1 K/mm3 (0.0-0.1); Basophils Percent Auto 0.9 % (0.2-1.2); Eosinophils Absolute Auto 0.2 K/mm3 (0-0.3); Eosinophils Percent Auto 2.5 % (0-4.4); Hematocrit 38.8 % (37.0-47.0); Hemoglobin 11.8 g/dL (12.0-15.0); Immature Granulocyte Absolute 0.03 K/mm3 (0.00-0.031); Immature Granulocyte Percent A 0.4 % (0-0.5); Lymphocytes Absolute Auto 1.45 K/mm3 (0.9-3.2); Mean Corpuscular HGB Conc 30.4 g/dl (32-36); Mean Corpuscular Hemoglobin 28.9 pg (26-34); Mean Corpuscular Volume 94.9 fl (80-100); Mean Platelet Volume 11.4 fl (7.4-10.4); Monocytes Absolute Auto 0.8 K/mm3 (0.1-0.6); Monocytes Percent Auto 10.5 % (2.6-8.5); Neutrophils Absolute Auto 5.1 K/mm3 (1.3-6.7); Neutrophils Percent Auto 66.7 % (45.5-73.1); Platelet Count Result 256 k/mm3 (150-375); Red Blood Count 4.09 M/mm3 (4.2-5.4); White Blood Count 7.6 K/mm3 (4.5-10.0)
[2021-05-25] MEDS: SODIUM CHLORIDE 0.9% IV 1,000 ML 999 ML IV CONT (11:58)
--- NOTE | 2021-05-25 11:59 | PC.NURSE ---
Pt to CT and XRAY via stretcher at this time.
[2021-05-25 12:07] LABS: Alanine Aminotransferase 15 U/L (4-35); Albumin Level 4.1 g/dL (3.5-5.1); Alkaline Phosphatase 125 U/L (38-126); Anion Gap 11 mmol/L (8-16); Aspartate Amino Transferase 29 U/L (14-36); Bilirubin,Total 0.8 mg/dL (0.2-1.3); Blood Urea Nitrogen 16 mg/dL (7-17); Calcium 9.1 mg/dL (8.4-10.2); Carbon Dioxide 25 mmol/L (22-30); Chloride 99 mmol/L (98-107); Estimated CRCL calculation 101 ml/min; Estimated Glomerular Filt Rate > 60; Glucose 95 mg/dL (65-110); Potassium 4.9 mmol/L (3.4-5.0); Sodium 135 mmol/L (137-145)
[2021-05-25 12:26] VITALS: BP 147/71; PULSE 81; RESP 20; O2SAT 97
--- NOTE | 2021-05-25 12:40 | PC.NURSE ---
Pt to XRAY via stretcher at this time.
[2021-05-25 12:54] LABS: INR 1.2; Prothrombin Time 15.3 Seconds (11.1-14.7)
[2021-05-25 12:55] LABS: Partial Thromboplastin Time 24.7 SECONDS (22.3-36.8)
[2021-05-25 13:33] VITALS: BP 120/94; PULSE 88; RESP 19; O2SAT 98
[2021-05-25] MEDS: TETANUS,DIPHTHERIA,AC PERTUSSIS ADULT (0.5 ML) BOOSTRIX IM (13:53)
[2021-05-25 14:21] VITALS: BP 181/98; PULSE 85; RESP 18; O2SAT 99
== END 2021-05-25 14:29 | disposition home or self-care (01) ==
PROVIDERS: Emergency Provider Emergency Medicine; PCP Family Medicine
DX: S01.01XA Laceration without foreign body of scalp, initial encounter (principal); Z23 Encounter for immunization; M17.0 Bilateral primary osteoarthritis of knee; I67.2 Cerebral atherosclerosis; M47.812 Spondylosis without myelopathy or radiculopathy, cervical region; I10 Essential (primary) hypertension; K21.9 Gastro-esophageal reflux disease without esophagitis; G47.30 Sleep apnea, unspecified; Z98.84 Bariatric surgery status; W10.9XXA Fall (on) (from) unspecified stairs and steps, initial encounter
CPT/HCPCS: 12002; 36415; 70450; 72125; 73564; 80053; 85025; 85610; 85730; 90471; 90715; 93005; 96360; 96361; 99284; J7030

== ENCOUNTER → 2021-08-30 10:34 | Outpatient (CLI) | payer OTHER, SELFPAY ==
--- NOTE | ~2021-08-30 | XR_ITS ---
EXAMINATION: XR knee RT 3V DATE: 08/30/2021 11:31 INDICATION: Primary osteoarthritis of right knee. TECHNIQUE: 3 views of right knee including standing views were obtained. COMPARISON: Right knee radiograph 05/25/2021 FINDINGS: Bone alignment is normal. No fracture. There is severe osteoarthritis of medial compartment and mild osteoarthritis of lateral and patellofemoral compartments. No knee joint effusion. IMPRESSION: 1. Severe right knee osteoarthritis. Reviewed, dictated and finalized at location A. AL BOSS
--- NOTE | ~2021-08-30 | XR_ITS ---
EXAMINATION: XR knee LT 3V DATE: 08/30/2021 11:31 INDICATION: Primary osteoarthritis of left knee. TECHNIQUE: 3 views of left knee including standing views were obtained. COMPARISON: Left knee radiographs 05/25/2021 FINDINGS: There is lateral subluxation of patella. No fracture. There is moderate osteoarthritis of m edial compartment and mild osteoarthritis of lateral and patellofemoral compartments. No knee joint e ffusion. IMPRESSION: 1. Moderate left knee osteoarthritis. Reviewed, dictated and finalized at location A. CULAR BIOLOGY DIRECTOR
== END ==
PROVIDERS: PCP Family Medicine; Visit Provider Internal Medicine
DX: M17.0 Bilateral primary osteoarthritis of knee (principal)
CPT/HCPCS: 73562

== ENCOUNTER 2022-04-30 16:01 | Emergency (ER) | payer OTHER, SELFPAY ==
[2022-04-30 16:08] VITALS: BP 143/83; PULSE 67; RESP 14; TEMP 36.5; O2SAT 97
--- NOTE | 2022-04-30 17:58 | ED.LOWEXIN ---
HPI - Extremity Injury (Lower) General Chief Complaint: Extremity Injury, Lower Stated Complaint: Left foot Pain Time Seen by Provider: 04/30/22 17:48 Source: patient Mode of arrival: ambulatory Limitations: no limitations History of Present Illness HPI Narrative: Patient presents today complaining of redness, pain, and burning to the dorsum of her left foot since last night. States she felt that it was itching under the table and was scratching it with a back associate programmer. When she went to look at it she saw the bright redness. Denies any injury, insect bite, or sore. She has not tried anything for symptoms prior to arrival. She does report some tingling to her toes. Related Data Home Medications Medication Instructions Recorded Confirmed irbesartan 300 mg tablet 300 mg PO DAILY 07/18/21 04/30/22 metoprolol succinate 50 mg 50 mg PO DAILY 07/18/21 04/30/22 tablet,extended release 24 hr amlodipine 10 mg tablet 10 mg PO DAILY 01/17/22 04/30/22 cholecalciferol (vitamin D3) 125 125 mcg PO DAILY 04/17/22 04/30/22 mcg (5,000 unit) capsule magnesium oxide 500 mg tablet 500 mg PO DAILY 04/17/22 04/30/22 Allergies Allergy/AdvReac Type Severity Reaction Status Date / Time No Known Allergies Allergy Verified 04/30/22 16:30 Review of Systems Review of Systems: CONSTITUTIONAL: Denies body aches, fever, chills, or sweats. EYES: Denies visual changes, redness, or discharge. ENT: Denies rhinorrhea, congestion, sore throat, or otalgia. CARDIOVASCULAR: Denies chest pain, palpitations, or edema. RESPIRATORY: Denies cough or dyspnea. GASTROINTESTINAL: Denies abdominal pain, nausea, vomiting, or diarrhea. GENITOURINARY: Denies dysuria or hematuria. SKIN: Denies wounds.+ Redness and itching to the dorsum of the left foot MUSCULOSKELETAL: Denies back pain, joint pain, or myalgia. NEUROLOGIC: Denies headache, numbness, or weakness.+ Tingling to left toes PSYCH: Denies depression or anxiety. [facility] Past Medical History Medical History Bilateral knee pain Depression Dyspnea on exertion Environmental allergies Essential (primary) hypertension Frequent urination GERD without esophagitis Heart murmur Left upper arm pain Lumbar spondylosis Normal colonoscopy (~07/2019) Sleep apnea Vitamin D deficiency Surgical History Surgical History History of foot surgery (~02/2017) Left History of gastric bypass (~1999) History of tubal ligation (~1979) Family History Family History Mother Family history of arthritis Family history of diabetes mellitus in first degree relative Family history of congestive heart failure Family history of heart disease in male family member before age 55 Carcinoma of colon Sibling Family history of diabetes mellitus in first degree relative Family history of coronary artery disease Family history of heart disease in male family member before age 55 Diabetes mellitus Cerebrovascular accident Family history of malignant neoplasm of breast in first degree relative Grandparent Diabetes mellitus Asthma Family history of malignant neoplasm Carcinoma of colon Father Family history of lung cancer Other Depression Family history of obesity Hypertension Social History Social History Second hand tobacco smoke exposure: No Alcohol intake: never Substance use: never Gender identity (if verbalized by the patient): Female Comments At time of signature, I have reviewed and agree with nursing past medical, surgical, social and family history unless otherwise noted. Please see nursing chart for further information. There is no relevant family history pertinent to the presenting complaint Exam Narrative: GENERAL: Well-appearing, well-nour
== END 2022-04-30 18:07 | disposition home or self-care (01) ==
PROVIDERS: Emergency Provider Nurse Practitioner; PCP Family Medicine
DX: L03.116 Cellulitis of left lower limb (principal); I10 Essential (primary) hypertension; K21.9 Gastro-esophageal reflux disease without esophagitis; R01.1 Cardiac murmur, unspecified; M47.816 Spondylosis without myelopathy or radiculopathy, lumbar region; G47.30 Sleep apnea, unspecified; Z98.84 Bariatric surgery status
CPT/HCPCS: 99213; G0463

== ENCOUNTER 2022-10-13 09:54 | Inpatient (IN) | payer OTHER, SELFPAY ==
[2022-10-13] VITALS (16 sets, daily range): BP systolic 121–182; BP diastolic 63–102; PULSE 63–103; RESP 18–33; TEMP 36.3–36.9; O2SAT 93–100; BMI 59.2; BMI 59.5
--- NOTE | ~2022-10-13 | XR_ITS ---
XR chest 2V 10/13/2022 11:14 Indication: Shortness of breath Procedure: 2 view chest Comparison: Comparison to multiple prior studies sequentially, with oldest reviewed study dated 07/22. Findings: Cardiomegaly with mild interstitial edema. No significant effusion or pneumothorax. There i s atherosclerosis. No acute osseous abnormality. There are surgical changes in the left upper abdomen . Impression: 1: Cardiomegaly with mild interstitial edema. Reviewed, dictated and finalized at location A. X SYSTEM ADMIN Impression: 1: Cardiomegaly with mild interstitial edema.
--- NOTE | ~2022-10-13 | US_ITS ---
EXAMINATION: US venous doppler [facility] DATE: 10/14/2022 11:33 INDICATION: Bilateral lower extremity edema and pain. TECHNIQUE: Grayscale images without and with compression and Doppler images of the bilateral lower ex tremity veins were obtained. COMPARISON: None FINDINGS: Generalized suboptimal imaging due to body habitus. The right peroneal veins were not well seen. The right common femoral vein, profunda (deep) femoral v ein, femoral vein, popliteal vein, posterior tibial veins, gastrocnemius vein, and greater saphenous vein are patent. Ritter's cyst. The left common femoral vein, profunda femoral vein, femoral vein, popliteal vein, peroneal vein, pos terior tibial veins, gastrocnemius vein, and greater saphenous vein are patent. IMPRESSION: 1. Right peroneal veins not visualized. 2. Otherwise patent bilateral lower extremity veins. No evidence of deep venous thrombosis. Reviewed, dictated and finalized at location K. [facility] [employer]
--- NOTE | 2022-10-13 10:04 | ECG_ITS ---
Measurements Intervals [place] Rate: 89 P: 58 TN: 168 QRS: 56 QRSD: 90 T: 50 QT: 363 QTc: 443 Interpretive Statements SINUS RHYTHM WITH PREMATURE ATRIAL CONTRACTION BORDERLINE ECG COMPARED TO ECG 05/25/2021 12:32:16 SINUS ARRHYTHMIA NOW PRESENT Electronically Signed On 10-13-2022 20:01:04 PROPERTY MANAGEMENT SPECIALIST by Yoan Mckee M.D.
[2022-10-13 10:17] LABS: Basophils Absolute Auto 0.1 K/mm3 (0.0-0.1); Basophils Percent Auto 0.9 % (0.2-1.2); Eosinophils Absolute Auto 0.2 K/mm3 (0-0.3); Eosinophils Percent Auto 2.2 % (0-4.4); Hematocrit 43.6 % (37.0-47.0); Hemoglobin 13.4 g/dL (12.0-15.0); Immature Granulocyte Absolute 0.04 K/mm3 (0.00-0.031); Immature Granulocyte Percent A 0.5 % (0-0.5); Lymphocytes Absolute Auto 1.71 K/mm3 (0.9-3.2); Lymphocytes Percent Auto 20.1 % (18.3-44.2); Mean Corpuscular HGB Conc 30.7 g/dl (32-36); Mean Corpuscular Hemoglobin 31.7 pg (26-34); Mean Corpuscular Volume 103.1 fl (80-100); Mean Platelet Volume 11.4 fl (7.4-10.4); Monocytes Percent Auto 11.2 % (2.6-8.5); Neutrophils Absolute Auto 5.5 K/mm3 (1.3-6.7); Neutrophils Percent Auto 65.1 % (45.5-73.1); Platelet Count Result 269 k/mm3 (150-375); Red Blood Count 4.23 M/mm3 (4.2-5.4); Red Cell Distribution Width 12.9 % (11.5-14.5); White Blood Count 8.5 K/mm3 (4.5-10.0)
--- NOTE | 2022-10-13 10:30 | ED.SOB ---
HPI - SOB/Dyspnea General Chief Complaint: Shortness of Breath/Dyspnea Stated Complaint: SOB Time Seen by Provider: 10/13/22 10:14 History of Present Illness HPI Narrative: Patient is a 77-year-old female with a history of hypertension, osteoarthritis, depression, GERD presenting with shortness of breath. Patient states that she has had exertional dyspnea for the last 6 months. States that she regularly checks her pulse ox while walking and it normally stays above 89%. Today she walked to her bathroom and felt extremely dyspneic so she checked her pulse ox and it was 84% which is the lowest she seen it. States that she has had intermittent bilateral lower extremity swelling for the last couple of weeks. States that she has had a cough especially in the middle of the night for the last several days. She denies headache, fevers, chest pain, palpitations, lightheadedness, abdominal pain, nausea or vomiting, diarrhea, dysuria, back pain. Related Data Home Medications Medication Instructions Recorded Confirmed irbesartan 300 mg tablet 300 mg PO DAILY 07/18/21 10/13/22 amlodipine 10 mg tablet 10 mg PO HS 01/17/22 10/13/22 magnesium oxide 500 mg tablet 500 mg PO DAILY 04/17/22 10/13/22 cholecalciferol (vitamin D3) 25 25 mcg PO DAILY 07/19/22 10/13/22 mcg (1,000 unit) tablet prednisone 5 mg tablet 5 mg PO TID 07/19/22 10/13/22 tramadol 50 mg tablet 50 mg PO Q6-8H PRN pain 07/19/22 10/13/22 Allergies Allergy/AdvReac Type Severity Reaction Status Date / Time No Known Allergies Allergy Verified 10/13/22 16:23 Review of Systems Review of Systems: All systems reviewed & are unremarkable except as noted in HPI and below PMFSH Past Medical History Medical History (Updated 10/14/22 @ 08:24 by Jonna Telles MD) Bilateral knee pain Depression Environmental allergies Essential (primary) hypertension GERD without esophagitis Heart murmur Histoplasmosis Treated between 1985 and 1988. Lumbar spondylosis Morbid obesity Normal colonoscopy (~07/2019) Overactive bladder Sleep apnea Vitamin D deficiency Surgical History Surgical History History of foot surgery (~02/2017) Left History of gastric bypass (~1999) History of tubal ligation (~1979) Family History Family History Mother Family history of arthritis Family history of diabetes mellitus in first degree relative Family history of congestive heart failure Family history of heart disease in male family member before age 55 Carcinoma of colon Sibling Family history of diabetes mellitus in first degree relative Family history of coronary artery disease Family history of heart disease in male family member before age 55 Diabetes mellitus Cerebrovascular accident Family history of malignant neoplasm of breast in first degree relative Grandparent Diabetes mellitus Asthma Family history of malignant neoplasm Carcinoma of colon Father Family history of lung cancer Other Depression Family history of obesity Hypertension Social History Social History (Updated 10/13/22 @ 19:42 by Tabitha Low PA-C) Social History: Surrogate medical decision maker: Lissy Handy, Ninfa Vail, Christiano Solorio (children). Code status: Full code. Smoking status: Never smoker Second hand tobacco smoke exposure: Yes Alcohol intake: never Substance use: never Substance use type: does not use Lack of Transportation: No Lack of Food: Never True Current Housing: I Do Not Have Housing Concerned About Future Housing: No Difficulty Paying Gas/Electric Bills: No Difficulty Paying for Meds: No Currently Unemployed: No Education: High School Diploma/GED Difficulty w/ Childcare or Family Care: No Additional living arrangements comments: Lives in [place]. Additional occupation/education comments: Retired customer s
[2022-10-13 10:31] LABS: Alanine Aminotransferase 19 U/L (6-35); Albumin Level 4.2 g/dL (3.5-5.1); Alkaline Phosphatase 87 U/L (38-126); Anion Gap 7 mmol/L (8-16); Aspartate Amino Transferase 28 U/L (14-36); Blood Urea Nitrogen 13 mg/dL (7-17); Calcium 8.4 mg/dL (8.4-10.2); Carbon Dioxide 29 mmol/L (22-30); Chloride 104 mmol/L (98-107); Estimated Glomerular Filt Rate > 60; Glucose 106 mg/dL (65-110); Potassium 3.5 mmol/L (3.4-5.0); Sodium 140 mmol/L (137-145)
[2022-10-13 11:05] LABS: Prothrombin Time 12.7 Seconds (11.1-14.7)
[2022-10-13 11:06] LABS: Partial Thromboplastin Time 25.1 SECONDS (22.3-36.8)
--- NOTE | 2022-10-13 11:15 | PC.NURSE ---
1100 Assumed pt care from angelita Jeffrey RN
[2022-10-13 11:20] LABS: NT Pro B Type Natriuretic Pept 887 pg/mL (5-100); Troponin I 0.013 ng/mL (0.000-0.034)
[2022-10-13 11:58] LABS: Influenza A QL RT-PCR Negative (Negative); Influenza B QL RT-PCR Negative (Negative); RSV RNA, RT-PCR Negative (Negative); SARS-CoV-2 RNA PCR Negative
[2022-10-13] MEDS: FUROSEMIDE INJ 40 MG/4 ML VIAL IV PUSH ×2 (14:34→22:31)
--- NOTE | 2022-10-13 15:00 | PM.IMHP ---
H&P: HPI History of Present Illness Date/Time: 10/13/22 15:00 Chief Complaint: Shortness of breath. Narrative: This is a pleasant 77-year-old female with hypertension, congestive heart failure (type unknown), untreated obstructive sleep apnea, morbid obesity, and GERD presented to the emergency department from home for evaluation of shortness of breath. She has no known history of pulmonary disease but she has prescriptions for inhalers at home and she endorses chronic dyspnea (she will get short of breath walking 20 feet). The last 6 months or so she has become increasingly more short of breath on lesser and lesser exertion and she has been monitoring her pulse ox closely. It is not unusual for her SpO2 to drop into the high 80s with ambulation however today it dipped down to 84% and she came in for evaluation. With further questioning she also endorses increasing lower extremity edema the last several weeks and in fact she took her p.r.n. Lasix for 5 straight days last week with only some benefit. She denies fever, chills, sweats, cold and flu symptoms, chest pain, pleuritic pain, palpitations, orthopnea, and paroxysmal nocturnal dyspnea. Vital signs were stable on arrival to the ED. She is currently on 2 liters nasal cannula with an SpO2 in the mid 90s. Initial troponin was negative and her proBNP was mildly elevated at 887. She tested negative for influenza, COVID, and RSV. Chest x-ray shows cardiomegaly with mild interstitial edema and she is being admitted in this setting for further treatment and workup. Review of Systems Review of Systems: Twelve systems were reviewed and are negative except for as per HPI. [facility] Past Medical History Medical History (Updated 10/13/22 @ 19:46 by Tabitha Low PA-C) Bilateral knee pain Depression Environmental allergies Essential (primary) hypertension GERD without esophagitis Heart murmur Histoplasmosis Treated between 1985 and 1988. Lumbar spondylosis Morbid obesity Normal colonoscopy (~07/2019) Overactive bladder Sleep apnea Vitamin D deficiency Surgical History Surgical History History of foot surgery (~02/2017) Left History of gastric bypass (~1999) History of tubal ligation (~1979) Family History Family History Mother Family history of arthritis Family history of diabetes mellitus in first degree relative Family history of congestive heart failure Family history of heart disease in male family member before age 55 Carcinoma of colon Sibling Family history of diabetes mellitus in first degree relative Family history of coronary artery disease Family history of heart disease in male family member before age 55 Diabetes mellitus Cerebrovascular accident Family history of malignant neoplasm of breast in first degree relative Grandparent Diabetes mellitus Asthma Family history of malignant neoplasm Carcinoma of colon Father Family history of lung cancer Other Depression Family history of obesity Hypertension Social History Social History (Updated 10/13/22 @ 19:42 by Tabitha Low PA-C) Social History: Surrogate medical decision maker: Lissy Handy, Ninfa Vail, Christiano Solorio (children). Code status: Full code. Smoking status: Never smoker Second hand tobacco smoke exposure: Yes Alcohol intake: never Substance use: never Substance use type: does not use Lack of Transportation: No Lack of Food: Never True Current Housing: I Do Not Have Housing Concerned About Future Housing: No Difficulty Paying Gas/Electric Bills: No Difficulty Paying for Meds: No Currently Unemployed: No Education: High School Diploma/GED Difficulty w/ Childcare or Family Care: No Additional living arrangements comments: Lives in [place]. 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 Jann
[2022-10-13 15:13] LABS: Troponin I 0.015 ng/mL (0.000-0.034)
--- NOTE | 2022-10-13 15:50 | ADMGEN ---
This patient, Cassy Luna, was admitted to Medical Room 246-01. Patient/family oriented to hospital policies and general routines including ID bracelet, bed and alarms, visiting hours, pain management, procedures, bathroom and other care routines, personal items, smoking policy, room service/diet, and visiting hours. Information on how to activate the Rapid Response Team has been discussed. Patient/Family are encouraged to report perceived risks to care and to ask questions if they do not understand what they are told or what they should do.
[2022-10-13] MEDS: traMADol HCL (*CRX) 50 MG TABLET PO (21:31)
[2022-10-13] MEDS: CELECOXIB 200 MG CAPSULE PO (22:31)
[2022-10-13] MEDS: amLODIPine BESYLATE 5 MG TABLET 10 MG PO (22:32)
[2022-10-14] VITALS (16 sets, daily range): BP systolic 90–140; BP diastolic 50–67; PULSE 78–93; RESP 16–20; TEMP 36.3–36.9; O2SAT 95–99
[2022-10-14] MEDS: AMITRIPTYLINE HCL 25 MG TABLET PO ×2 (00:54→20:52)
[2022-10-14 05:29] LABS: Anion Gap 8 mmol/L (8-16); Blood Urea Nitrogen 10 mg/dL (7-17); Calcium 8.2 mg/dL (8.4-10.2); Carbon Dioxide 32 mmol/L (22-30); Chloride 100 mmol/L (98-107); Estimated CRCL calculation 103 ml/min; Estimated Glomerular Filt Rate > 60; Glucose 101 mg/dL (65-110); Magnesium 1.7 mg/dL (1.6-2.3); Potassium 2.8 mmol/L (3.4-5.0); Sodium 140 mmol/L (137-145)
[2022-10-14] MEDS: POTASSIUM CHLORIDE 20 MEQ TABLET 80 MEQ PO (05:58)
[2022-10-14] MEDS: MAGNESIUM SULF 2 GM/WATER 50ML 2 GM/50 ML BAG IVPB (05:59)
[2022-10-14] MEDS: traMADol HCL (*CRX) 50 MG TABLET PO (05:59)
[2022-10-14] MEDS: PERFLUTREN LIPID MICROSPHERES 1.5 ML VIAL DILUTED TO 10 ML TOTAL VOLUME IV PUSH (07:20)
[2022-10-14] MEDS: DULoxetine HCL 60 MG CAPSULE.DR PO (08:59)
[2022-10-14] MEDS: PANTOPRAZOLE 40 MG TABLET PO (08:59)
[2022-10-14] MEDS: CELECOXIB 200 MG CAPSULE PO ×2 (09:00→17:09)
[2022-10-14] MEDS: CHOLECALCIFEROL 1,000 UNITS TABLET 1000 UNITS PO (09:00)
[2022-10-14] MEDS: METOPROLOL SUCCINATE EXT REL 100 MG TABCR PO (09:01)
[2022-10-14] MEDS: MAGNESIUM OXIDE 400 MG TABLET PO (09:01)
[2022-10-14] MEDS: IRBESARTAN 150 MG TABLET 300 MG PO (09:02)
[2022-10-14] MEDS: ENOXAPARIN 40 MG/0.4 ML SYRINGE SUB-Q (09:03)
[2022-10-14] MEDS: FLUTICASONE PROPIONATE 0.05% NA SPR 16 GM BTL (*BKC) 1 SPRAY NASAL (09:03)
[2022-10-14] MEDS: FUROSEMIDE INJ 40 MG/4 ML VIAL IV PUSH ×2 (09:05→17:10)
--- NOTE | 2022-10-14 10:29 | PM.IMPN ---
Progress Note: A&P Assessment and Plan (1) Acute exacerbation of congestive heart failure: Code(s): I50.9 - Heart failure, unspecified Status: Acute Assessment and Plan: Type unknown. patient follows with cardiology but is not familiar with CHF diagnosis. Only taking Lasix p.r.n. at home. On presentation CXR revealed cardiomegaly with mild interstitial edema. BNP was 887. echocardiogram pending. Continue IV Lasix 40 mg IV b.i.d.. Monitor intake and output and daily weights. Heart healthy diet (2) Hypoxia: Code(s): R09.02 - Hypoxemia Status: Acute Assessment and Plan: Related to above though she may have some chronic hypoxia related to untreated sleep apnea and obesity hypoventilation syndrome. PE consider, however less likely given clinical history. Venous Doppler pending given lower extremity edema. currently requiring 2 L supplemental O2 per nasal cannula. Wean oxygen as tolerated with goal sats 92% or above. She will need home O2 eval prior to discharge. She will be referred for outpatient PFTs. (3) Obstructive sleep apnea: Code(s): G47.33 - Obstructive sleep apnea (adult) (pediatric) Status: Acute Assessment and Plan: Untreated; patient states that she is unable to tolerate CPAP. Will need to follow-up with PCP to consider alternatives or have outpatient pulmonology evaluation (4) Arthritis: Code(s): M19.90 - Unspecified osteoarthritis, unspecified site Status: Acute Assessment and Plan: Continue low-dose prednisone and tramadol as needed. (5) Essential (primary) hypertension: Code(s): I10 - Essential (primary) hypertension Status: Chronic Assessment and Plan: Blood pressures were reviewed and they are stable. Continue antihypertensives and monitor blood pressures closely. (6) Hypokalemia: Code(s): E87.6 - Hypokalemia Status: Acute Assessment and Plan: potassium decreased 2.8 today secondary to diuresis. Will supplement and initiate scheduled potassium with ongoing diuresis. Magnesium supplement. monitor BMP Subjective Date/time seen: 10/14/22 10:29 Interval history: Date of service: 10/14/2022 rohit Luna is a 77-year-old female with a history of hypertension, GERD, OAB, GREG, and depression who is seen in follow-up for CHF exacerbation. she is feeling better today. She was previously endorsing dyspnea with minimal exertion. she has not been out of bed today, therefore cannot assess the symptoms but resting in bed she feels much more comfortable. She does continues to endorse cough and notes that last night her cough was more persistent. It is less bothersome today. She denies any sinus congestion. Her bilateral lower extremities are tender and swollen she has noted some very faint redness. She does endorse feeling off balance when ambulating and she does require the use of a cane. She occasionally feels dizzy and lightheaded, however again she has not been out of bed today to assess this. she denies abdominal pain, nausea, or vomiting. Reports regular bowel movements and denies urinary symptoms. Review of Systems Review of Systems: All systems reviewed & are unremarkable except as noted in HPI and below Exam Narrative: General: obese, well-appearing 77-year-old female, sitting up in bed, comfortable, NARD Neuro: awake, alert and oriented x4, speech clear, no focal neuro deficits noted HEENMT: normocephalic, atraumatic, EOMI, sclerae anicteric Respiratory: difficult to auscultate due to body habitus, however no obvious crackles, rhonchi, or wheezes, nonlabored breathing, able to speak in complete sentences, no accessory muscle use Cardio: regular rate, regular rhythm with S1-S2 Abdomen: obese, normoactive bowel sounds, soft, nontender to palpation Extremities: 1+ edema of bilateral lower extremities, no erythema, nontender to palpation, DP pulses 2+ bilateral
[2022-10-14] MEDS: predniSONE 5 MG TABLET PO (14:35)
[2022-10-14] MEDS: ACETAMINOPHEN 325 MG TABLET 650 MG PO (14:35)
[2022-10-14] MEDS: POTASSIUM CHLORIDE 20 MEQ PACKET (FOR LIQUID) PO (17:10)
--- NOTE | 2022-10-14 19:50 | ECHO_ITS ---
Patient Info Name: Cassy uLna Age: 77 years : 1945 Gender: Female Ht: 64 in Wt: 347 lbs BSA: 2.77 m2 HR: 85 bpm BP: 140 / 67 mmHg Heart Rhythm: Sinus Rhythm Technical Quality: Poor Exam Date: 10/14/2022 7:27 AM Exam Location: [facility] Patient Status: Inpatient Admit Date: 10/13/2022 Staff Ordering Physician: Tabitha Low PA-C Make Ready Mechanic: Yanelis Cheng RDCS Attending Provider: Christiane White PA-C Referring Physician: Devante PITTS; Exam Type: CA echo dop color flow w con Study Info Indications R06.02 - Shortness of breath Complete two-dimensional, color flow and Doppler transthoracic echocardiogram is performed with contrast to opacify the left ventricle and to improve the deliniation of the left ventricle endocardial borders. Contrast/Agitated Saline Contrast/Ag. Saline: Definity Amount: 4.00 ml Administered By: Yanelis Cheng [facility] Reason for Poor Study: patient body habitus Summary 1. Technically difficult study with limited views. Definity contrast enhancement administered. 2. Left ventricular chamber dimension is normal. 3. Left ventricular systolic function is normal, estimated at >70%. 4. There is mildly increased left ventricular wall thickness. 5. The left ventricular diastolic function is grade II diastolic dysfunction. 6. There is no aortic valve stenosis. 7. There is mild tricuspid valve regurgitation. 8. Moderate pulmonary hypertension, estimated pulmonary arterial systolic pressure is 59 mmHg. Left Ventricle Left ventricular chamber dimension is normal. Left ventricular systolic function is normal, estimated at >70%. There is mildly increased left ventricular wall thickness. The left ventricular diastolic function is grade II diastolic dysfunction. E/e' 16.24 is mildly elevated. Technically difficult study with limited views. Definity contrast enhancement administered. Right Ventricle Right ventricular chamber dimension is normal. Right ventricular systolic function is normal. Left Atria Left atrial chamber dimension is normal. Right Atria Right atrial chamber dimension is normal. Aortic Valve The aortic valve is not well visualized. There is no aortic valve stenosis. There is no aortic valve regurgitation. Pulmonic Valve The pulmonic valve is not well visualized. Mitral Valve The mitral valve has normal leaflets. There is trace mitral valve regurgitation. The mitral valve annulus is mildly calcified. Tricuspid Valve The tricuspid valve leaflets are normal. There is mild tricuspid valve regurgitation. Moderate pulmonary hypertension, estimated pulmonary arterial systolic pressure is 59 mmHg. Pericardium/Pleural The pericardium appears epicardial fat pad. There is trivial pericardial effusion. Inferior Vena Cava Normal inferior vena cava with >50% collapse upon inspiration consistent with normal right atrial pressure, 5 mmHg. Aorta The aortic root size at the sinus of Valsalva is normal. There is mild aortic atherosclerosis. Left Ventricular Outflow Tract Name Value Normal LVOT 2D LVOT Diameter 2.20 cm LVOT Doppler --
[2022-10-15] VITALS (10 sets, daily range): BP systolic 107–131; BP diastolic 56–82; PULSE 81–96; RESP 16–18; TEMP 36.5–37; O2SAT 91–95
[2022-10-15 05:12] LABS: Hematocrit 39.8 % (37.0-47.0); Hemoglobin 12.4 g/dL (12.0-15.0); Mean Corpuscular HGB Conc 31.2 g/dl (32-36); Mean Corpuscular Hemoglobin 31.3 pg (26-34); Mean Corpuscular Volume 100.5 fl (80-100); Mean Platelet Volume 11.7 fl (7.4-10.4); Platelet Count Result 226 k/mm3 (150-375); Red Blood Count 3.96 M/mm3 (4.2-5.4); Red Cell Distribution Width 12.4 % (11.5-14.5); White Blood Count 6.6 K/mm3 (4.5-10.0)
[2022-10-15 05:29] LABS: Alanine Aminotransferase 15 U/L (6-35); Albumin Level 3.4 g/dL (3.5-5.1); Alkaline Phosphatase 84 U/L (38-126); Anion Gap 5 mmol/L (8-16); Aspartate Amino Transferase 21 U/L (14-36); Bilirubin,Total 0.8 mg/dL (0.2-1.3); Blood Urea Nitrogen 13 mg/dL (7-17); Calcium 8.2 mg/dL (8.4-10.2); Carbon Dioxide 31 mmol/L (22-30); Chloride 102 mmol/L (98-107); Estimated CRCL calculation 87 ml/min; Estimated Glomerular Filt Rate > 60; Glucose 95 mg/dL (65-110); Magnesium 2.2 mg/dL (1.6-2.3); Potassium 3.4 mmol/L (3.4-5.0); Sodium 138 mmol/L (137-145)
[2022-10-15] MEDS: CHOLECALCIFEROL 1,000 UNITS TABLET 1000 UNITS PO (08:05)
[2022-10-15] MEDS: CELECOXIB 200 MG CAPSULE PO ×2 (08:05→17:02)
[2022-10-15] MEDS: FLUTICASONE PROPIONATE 0.05% NA SPR 16 GM BTL (*BKC) 1 SPRAY NASAL (08:06)
[2022-10-15] MEDS: DULoxetine HCL 60 MG CAPSULE.DR PO (08:06)
[2022-10-15] MEDS: ENOXAPARIN 40 MG/0.4 ML SYRINGE SUB-Q (08:06)
[2022-10-15] MEDS: predniSONE 5 MG TABLET PO (08:07)
[2022-10-15] MEDS: FUROSEMIDE INJ 40 MG/4 ML VIAL IV PUSH ×2 (08:07→17:03)
[2022-10-15] MEDS: MAGNESIUM OXIDE 400 MG TABLET PO (08:07)
[2022-10-15] MEDS: PANTOPRAZOLE 40 MG TABLET PO (08:07)
[2022-10-15] MEDS: POTASSIUM CHLORIDE 20 MEQ PACKET (FOR LIQUID) PO ×2 (08:08→17:03)
--- NOTE | 2022-10-15 13:24 | PM.IMPN ---
Progress Note: A&P Assessment and Plan (1) Acute exacerbation of congestive heart failure: Code(s): I50.9 - Heart failure, unspecified Status: Acute Assessment and Plan: Echocardiogram completed on 10/14 showed EF of >70% with grade 2 diastolic dysfunction. On presentation CXR revealed cardiomegaly with mild interstitial edema. BNP 887. Continue IV Lasix 40 mg IV b.i.d.. Monitor intake and output and daily weights. Heart healthy diet. CHF education provided at length today. (2) Hypoxia: Code(s): R09.02 - Hypoxemia Status: Acute Assessment and Plan: Related to above though she may have some chronic hypoxia related to untreated sleep apnea and obesity hypoventilation syndrome. PE consider, however less likely given clinical history. Venous Doppler negative for DVT (peroneal veins not visualized). Echo reveals moderate pulmonary HTN. Initially required up to 2 L supplemental oxygen per nasal cannula, she has been weaned to room air today is maintaining adequate O2 sats. Plan for apnea link tonight to be completed on room air. She will need home O2 eval prior to discharge. She will be referred for outpatient PFTs. (3) Obstructive sleep apnea: Code(s): G47.33 - Obstructive sleep apnea (adult) (pediatric) Status: Acute Assessment and Plan: Untreated; patient states that she is unable to tolerate CPAP. Will need to follow-up with PCP to consider alternatives or have outpatient pulmonology evaluation (4) Arthritis: Code(s): M19.90 - Unspecified osteoarthritis, unspecified site Status: Acute Assessment and Plan: Continue low-dose prednisone and tramadol as needed. (5) Essential (primary) hypertension: Code(s): I10 - Essential (primary) hypertension Status: Chronic Assessment and Plan: Blood pressures are stable. Continue antihypertensives and monitor blood pressures closely. (6) Hypokalemia: Code(s): E87.6 - Hypokalemia Status: Acute Assessment and Plan: Resolved. Potassium 3.4 today. Continue with KCl 20 mEq b.i.d. with ongoing diuresis. Monitor BMP Subjective Date/time seen: 10/15/22 13:24 Interval history: Date of service: 10/15/2022 Cassy Luna is a 77-year-old female with a history of hypertension, GERD, OAB, GREG, and depression who is seen in follow-up for CHF exacerbation. She is feeling better today. States her breathing has improved, though notes she has not been up walking much hand prior to admission she noticed her symptoms were worsened with exertion. Reports some improvement in her lower extremity edema. Endorses dry cough. No chest pain. No nausea, vomiting, fever, chills, abdominal pain, dizziness, or lightheadedness. Review of Systems Review of Systems: All systems reviewed & are unremarkable except as noted in HPI and below Exam Narrative: General: obese, well-appearing 77-year-old female, sitting up in bed, comfortable, NARD Neuro: awake, alert and oriented x4, speech clear, no focal neuro deficits noted HEENMT: normocephalic, atraumatic, EOMI, sclerae anicteric Respiratory: Clear to auscultation bilaterally, nonlabored breathing Cardio: regular rate, regular rhythm with S1-S2 Abdomen: obese, normoactive bowel sounds, soft, nontender to palpation Extremities: Trace edema of bilateral lower extremities, no erythema, nontender to palpation, DP pulses 2+ bilaterally Skin: no rashes or lesions, warm and dry Psych: appropriate mood and affect, judgment and insight intact Objective Data Vital Signs Vital Signs: Vital Signs - 24 hr 10/14/22 14:00 10/14/22 16:00 10/14/22 17:00 Temperature 97.4 F L Pulse Rate 81 80 Respiratory Rate 20 Blood Pressure 90/60 L 122/60 Pulse Oximetry 99 Oxygen Delivery Oxygen Flow Rate 10/14/22 16:27 10/14/22 17:14 10/14/22 20:18 Temperature 98.5 F Pulse Rate 83 Respiratory Rate 16 Blood Pr
[2022-10-15] MEDS: AMITRIPTYLINE HCL 25 MG TABLET PO (20:56)
[2022-10-16] VITALS: PULSE 107
[2022-10-16 04:00] VITALS: PULSE 99
[2022-10-16 05:00] VITALS: BP 111/60; PULSE 99; RESP 16; TEMP 36.6; O2SAT 93
[2022-10-16 05:46] LABS: Hematocrit 41.1 % (37.0-47.0); Hemoglobin 12.9 g/dL (12.0-15.0); Mean Corpuscular HGB Conc 31.4 g/dl (32-36); Mean Corpuscular Hemoglobin 31.8 pg (26-34); Mean Corpuscular Volume 101.2 fl (80-100); Mean Platelet Volume 11.8 fl (7.4-10.4); Platelet Count Result 244 k/mm3 (150-375); Red Blood Count 4.06 M/mm3 (4.2-5.4); Red Cell Distribution Width 12.6 % (11.5-14.5); White Blood Count 6.7 K/mm3 (4.5-10.0)
[2022-10-16 06:05] LABS: Anion Gap 6 mmol/L (8-16); Blood Urea Nitrogen 16 mg/dL (7-17); Calcium 8.2 mg/dL (8.4-10.2); Carbon Dioxide 32 mmol/L (22-30); Chloride 99 mmol/L (98-107); Estimated CRCL calculation 86 ml/min; Estimated Glomerular Filt Rate > 60; Glucose 94 mg/dL (65-110); Potassium 3.3 mmol/L (3.4-5.0); Sodium 137 mmol/L (137-145)
[2022-10-16 09:25] VITALS: PULSE 117
[2022-10-16] MEDS: predniSONE 5 MG TABLET PO (09:25)
[2022-10-16] MEDS: METOPROLOL SUCCINATE EXT REL 100 MG TABCR PO (09:25)
[2022-10-16] MEDS: DULoxetine HCL 60 MG CAPSULE.DR PO (09:25)
[2022-10-16] MEDS: CELECOXIB 200 MG CAPSULE PO (09:26)
[2022-10-16] MEDS: MAGNESIUM OXIDE 400 MG TABLET PO (09:26)
[2022-10-16] MEDS: PANTOPRAZOLE 40 MG TABLET PO (09:26)
[2022-10-16] MEDS: CHOLECALCIFEROL 1,000 UNITS TABLET 1000 UNITS PO (09:26)
[2022-10-16] MEDS: IRBESARTAN 150 MG TABLET 300 MG PO (09:26)
[2022-10-16] MEDS: FLUTICASONE PROPIONATE 0.05% NA SPR 16 GM BTL (*BKC) 1 SPRAY NASAL (09:27)
[2022-10-16] MEDS: POTASSIUM CHLORIDE 20 MEQ PACKET (FOR LIQUID) PO (09:28)
[2022-10-16 09:30] VITALS: PULSE 96; O2SAT 93
[2022-10-16] MEDS: FUROSEMIDE 40 MG TABLET PO (11:25)
[2022-10-16] MEDS: ENOXAPARIN 40 MG/0.4 ML SYRINGE SUB-Q (11:25)
[2022-10-16 14:00] VITALS: BP 147/64
--- NOTE | 2022-10-16 14:23 | PM.DS ---
DS: Admitting Diagnosis Discharge Date 10/16/2022 Admitting Diagnosis CHF exacerbation DS: Discharge Diagnosis Discharge Diagnosis (1) Acute exacerbation of congestive heart failure: Code(s): I50.9 - Heart failure, unspecified Status: Acute Assessment and Plan: Echocardiogram completed on 10/14 showed EF of >70% with grade 2 diastolic dysfunction. On presentation CXR revealed cardiomegaly with mild interstitial edema. BNP 887. Diuresed with IV Lasix and had symptomatic improvement. Will continue lasix 20 mg BID. Heart healthy diet. CHF education provided at length. (2) Hypoxia: Code(s): R09.02 - Hypoxemia Status: Acute Assessment and Plan: Related to above though she may have some chronic hypoxia related to untreated sleep apnea and obesity hypoventilation syndrome. PE considered, however less likely given clinical history. Venous Doppler negative for DVT (peroneal veins not visualized). Echo revealed moderate pulmonary HTN. Initially required up to 2 L supplemental oxygen per nasal cannula, she was weaned to room air and maintained adequate O2 sats. Walking test completed and pt has no oxygen requirements at rest or with activity. Apnea link completed and pt has been referred to pulmonology as an outpatient. (3) Obstructive sleep apnea: Code(s): G47.33 - Obstructive sleep apnea (adult) (pediatric) Status: Acute Assessment and Plan: Untreated; patient states that she is unable to tolerate CPAP. Will need to follow-up with PCP and pulmonology. See below (4) Arthritis: Code(s): M19.90 - Unspecified osteoarthritis, unspecified site Status: Acute Assessment and Plan: Continue low-dose prednisone and tramadol as needed. (5) Essential (primary) hypertension: Code(s): I10 - Essential (primary) hypertension Status: Chronic Assessment and Plan: Blood pressures stable. Continue antihypertensives (6) Hypokalemia: Code(s): E87.6 - Hypokalemia Status: Acute Assessment and Plan: Resolved. Continue scheduled potassium supplementation with lasix. DS: Summary Hospital Course Hospital Course: Date of admission: 10/13/2022 Date of discharge: 10/16/2022 Cassy Luna is a 77-year-old female with a history of hypertension, GERD, OAB, GREG, and depression who presented to the emergency department on 10/13/2022 with complaints of dyspnea on exertion ongoing for 6 months, worsened over the past week with episode of hypoxia at home to 84%. On presentation to the ED, her blood pressure was elevated, she was tachypneic, and she required 2 L supplemental O2, CXR revealed cardiomegaly with mild interstitial edema. She was admitted to the hospitalist service for further evaluation and management. Please see above for further details. Echocardiogram revealed grade 2 diastolic CHF. Patient was diuresed with good urine output and symptomatic improvement. She will continue taking Lasix 20 mg b.i.d. at home with potassium supplementation. Patient does have untreated sleep apnea and was noted to have moderate pulmonary hypertension on echocardiogram. ApneaLink also revealed episodes of hypoxia when asleep and patient needs to have CPAP treatment. Discussed this at length with patient and she is agreeable to re-attempt. She was referred to pulmonology as an outpatient to arrange for appropriate management and monitoring. Home O2 eval was completed on 10/16/2022 and patient had no oxygen requirements. She was feeling back to her baseline state of health and requested discharge home. Given her overall improvement, she was determined to no longer require inpatient care and was discharged in hemodynamically stable condition on 10/16/2022. Time Spent with Patient Time attestation: Total time spent providing and/or coordinating discharge services: 40 minutes Time spent: Greater than 30 minutes Exam Narrative: [facility]era
== END 2022-10-16 14:45 | disposition home or self-care (01) | DRG 291 ==
LOC: ANHED 10:18 → ANH2MED 15:07
PROVIDERS: Physician Assistant; Admitting Provider Internal Medicine; Emergency Provider Emergency Medicine; PCP Family Medicine; Visit Provider Physician Assistant
DX: I11.0 Hypertensive heart disease with heart failure (principal); I50.31 Acute diastolic (congestive) heart failure; Z68.43 Body mass index [BMI] 50.0-59.9, adult; E87.6 Hypokalemia; E66.01 Morbid (severe) obesity due to excess calories; E55.9 Vitamin D deficiency, unspecified; F32.A Depression, unspecified; G47.33 Obstructive sleep apnea (adult) (pediatric); I27.20 Pulmonary hypertension, unspecified; K21.9 Gastro-esophageal reflux disease without esophagitis; M47.816 Spondylosis without myelopathy or radiculopathy, lumbar region; N32.81 Overactive bladder; R09.02 Hypoxemia; Z20.822 Contact with and (suspected) exposure to COVID-19; Z98.84 Bariatric surgery status
CPT/HCPCS: 36415; 71046; 80048; 80053; 83735; 83880; 84443; 84484; 85025; 85027; 85610; 85730; 87637; 93005; 93970; 94762; 96365; 96372; 96375; 96376; 99285; A9270; C8929; G0378; J1650; J1940; J3475; J7512; Q9957

== ENCOUNTER 2022-11-06 14:30 | Observation (INO) | payer OTHER, SELFPAY ==
--- NOTE | ~2022-11-06 | XR_ITS ---
XR chest 2V 11/06/2022 15:50 Indication: Shortness of breath with exertion Procedure: 2 view chest Comparison: 10/13/2022 Findings: There is cardiomegaly. No focal air space disease, pulmonary edema, pleural effusion or krystian pected pneumothorax. No acute osseous abnormality. Impression: 1: No acute cardiopulmonary disease. Reviewed, dictated and finalized at location A. O PRODUCTION COORDINATOR Impression: 1: No acute cardiopulmonary disease.
--- NOTE | ~2022-11-06 | CT_ITS ---
EXAMINATION: CTA chest PE protocol DATE: 11/06/2022 20:42 INDICATION: sob, elevated dimer, afib with RVR TECHNIQUE: Computed tomography angiography (CTA) of the chest was performed with 100 mL Omnipaque-350 intravenous contrast timed to evaluate the pulmonary arteries. Coronal maximum intensity projection 3D-reconstructions were created by the technologist. The dose-length product (DLP) was 939.74 mGy-cm. Automated exposure control and iterative reconstruction technique were employed. COMPARISON: None. FINDINGS: Lung parenchyma and airways: Mild bibasilar scar/atelectasis. Pleura: Unremarkable. Thoracic inlet, axillae and chest wall: Unremarkable. Thoracic aorta: Mild arch calcification. Mediastinum: Small hiatal hernia. Dilated central pulmonary arteries as can be seen with pulmonary ar terial hypertension. Heart and pericardium: Mitral calcification. Coronary artery calcifications: Mild. Upper abdomen: No significant finding. Prior gastric surgery. Bones: No acute osseous finding. Pulmonary arteries: Study quality: Adequate. No pulmonary emboli detected. IMPRESSION: No CT evidence of acute pulmonary embolus. Reviewed, dictated and finalized at location K. SURY SPECIALIST
[2022-11-06 14:35] VITALS: BP 105/69; PULSE 127; RESP 20; TEMP 36.4; O2SAT 100
--- NOTE | 2022-11-06 14:38 | ECG_ITS ---
Measurements Intervals [place] Rate: 151 P: AR: 0 QRS: 133 QRSD: 82 T: 49 QT: 272 QTc: 431 Interpretive Statements ATRIAL FIBRILLATION WITH RAPID VENTRICULAR RESPONSE RIGHT AXIS DEVIATION BORDERLINE ST-T WAVE ABNORMALITY- DIFFUSE LEADS BASELINE ARTIFACT- I, II, III, AVR, AVL, AVF ABNORMAL ECG COMPARED TO ECG 10/13/2022 10:04:33 ATRIAL FIBRILLATION NOW PRESENT Electronically Signed On 11-06-2022 20:22:05 CREDIT BALANCE SPECIALIST by Mario Higgins D.O.
--- NOTE | 2022-11-06 15:08 | ED.ARRPALP ---
HPI - Arrhythmia/Palpitations General Chief Complaint: Arrhythmia/Palpitations <Isabella Schaffer PA-C - Last Filed: 11/06/22 19:01> Stated Complaint: low blood pressure and elevated HR - hx chf <Isabella Schaffer PA-C - Last Filed: 11/06/22 19:01> Time Seen by Provider: 11/06/22 14:51 <Isabella Schaffer PA-C - Last Filed: 11/06/22 19:01> Source: patient, family and RN notes reviewed <Isabella Schaffer PA-C - Last Filed: 11/06/22 19:01> Mode of arrival: ambulatory <PEG Ruiz Last Filed: 11/06/22 19:01> Limitations: no limitations <Isabella Schaffer PA-C - Last Filed: 11/06/22 19:01> History of Present Illness HPI narrative: Patient presents to the ER for low blood pressure. Reports she has been routinely checking her blood pressure and it was noted to be low this morning. She does report she has had some exertional shortness of breath which is not new for her. She was recently diagnosed with diastolic heart failure and started on Lasix. She also noted that her heart rate was elevated which prompted her to be seen. She has no known history of atrial fibrillation. Does report recent long distance travel. She just got back from vacation yesterday. Denies fever, cough, or chest pain. <Isabella Schaffer PA-C - Last Filed: 11/06/22 19:01> Related Data Home Medications: Home Medications Medication Instructions Recorded Confirmed irbesartan 300 mg tablet 300 mg PO DAILY 07/18/21 11/07/22 amlodipine 10 mg tablet 10 mg PO HS 01/17/22 11/07/22 magnesium oxide 500 mg tablet 500 mg PO DAILY 04/17/22 11/07/22 cholecalciferol (vitamin D3) 25 25 mcg PO DAILY 07/19/22 11/07/22 mcg (1,000 unit) tablet prednisone 5 mg tablet 5 mg PO TID 07/19/22 11/07/22 tramadol 50 mg tablet 50 mg PO Q6-8H PRN pain 07/19/22 11/07/22 cetirizine 10 mg tablet 10 mg PO DAILY PRN allergy symptoms 10/25/22 11/07/22 furosemide 20 mg tablet 20 mg PO BID 10/25/22 11/07/22 potassium chloride 20 mEq 20 meq PO DAILY 10/25/22 11/07/22 tablet,extended release <Isabella Schaffer PA-C - Last Filed: 11/06/22 19:01> Allergies/Adverse Reactions: Allergies Allergy/AdvReac Type Severity Reaction Status Date / Time No Known Allergies Allergy Verified 11/06/22 14:31 <Isabella Schaffer PA-C - Last Filed: 11/06/22 19:01> Review of Systems Review of Systems: CONSTITUTIONAL: Denies fever CARDIOVASCULAR: Reports palpitations. Denies chest pain, or edema. RESPIRATORY: Reports dyspnea. <Isabella Schaffer PA-C - Last Filed: 11/06/22 19:01> All systems reviewed & are unremarkable except as noted in HPI and below <Isabella Schaffer PA-C - Last Filed: 11/06/22 19:01> [facility] Past Medical History Medical History: Medical History Bilateral knee pain Depression Environmental allergies Essential (primary) hypertension GERD without esophagitis Heart murmur Histoplasmosis Treated between 1985 and 1988. Lumbar spondylosis Morbid obesity Normal colonoscopy (~07/2019) Overactive bladder Sleep apnea Vitamin D deficiency <Isabella Schaffer PA-C - Last Filed: 11/06/22 19:01> Surgical History Surgical History: Surgical History History of foot surgery (~02/2017) Left History of gastric bypass (~1999) History of tubal ligation (~1979) <Isabella Schaffer PA-C - Last Filed: 11/06/22 19:01> Family History Family History: Family History Mother Family history of arthritis Family history of diabetes mellitus in first degree relative Family history of congestive heart failure Family history of heart disease in male family member before age 55 Carcinoma of colon Sibling Family history of diabetes mellitus in first degree relative Family history of coronary artery disease Family history of heart disease in male family
[2022-11-06 15:38] LABS: Basophils Absolute Auto 0.1 K/mm3 (0.0-0.1); Basophils Percent Auto 1.2 % (0.2-1.2); Eosinophils Absolute Auto 0.2 K/mm3 (0-0.3); Eosinophils Percent Auto 1.8 % (0-4.4); Hematocrit 44.4 % (37.0-47.0); Immature Granulocyte Absolute 0.02 K/mm3 (0.00-0.031); Immature Granulocyte Percent A 0.2 % (0-0.5); Lymphocytes Absolute Auto 1.99 K/mm3 (0.9-3.2); Lymphocytes Percent Auto 23.6 % (18.3-44.2); Mean Corpuscular HGB Conc 31.5 g/dl (32-36); Mean Corpuscular Hemoglobin 31.3 pg (26-34); Mean Corpuscular Volume 99.3 fl (80-100); Mean Platelet Volume 11.7 fl (7.4-10.4); Monocytes Absolute Auto 0.9 K/mm3 (0.1-0.6); Monocytes Percent Auto 10.8 % (2.6-8.5); Neutrophils Absolute Auto 5.3 K/mm3 (1.3-6.7); Neutrophils Percent Auto 62.4 % (45.5-73.1); Platelet Count Result 235 k/mm3 (150-375); Red Blood Count 4.47 M/mm3 (4.2-5.4); Red Cell Distribution Width 13.1 % (11.5-14.5); White Blood Count 8.4 K/mm3 (4.5-10.0)
[2022-11-06 15:53] LABS: Prothrombin Time 12.7 Seconds (11.1-14.7)
[2022-11-06 15:54] LABS: Partial Thromboplastin Time 23.5 SECONDS (22.3-36.8)
--- NOTE | 2022-11-06 16:10 | ECG_ITS ---
Measurements Intervals [place] Rate: 89 P: 224 [place]: 144 QRS: 130 QRSD: 79 T: 166 QT: 350 QTc: 427 Interpretive Statements SINUS RHYTHM LIMB LEAD REVERSAL BORDERLINE ST-T WAVE ABNORMALITY- ANTERIOR LEADS BASELINE ARTIFACT- I, II, III, AVR, AVL, AVF BORDERLINE ECG COMPARED TO ECG 11/06/2022 14:47:05 NO SIGNIFICANT CHANGES Electronically Signed On 11-06-2022 20:27:20 HUMAN RESOURCES PROJECT MANAGER by Mario Higgins D.O.
--- NOTE | 2022-11-06 17:48 | PC.NURSE ---
called lab regarding CMP with no results. Lab is to call back.
[2022-11-06 18:33] LABS: Alanine Aminotransferase 18 U/L (6-35); Alkaline Phosphatase 89 U/L (38-126); Anion Gap 8 mmol/L (8-16); Aspartate Amino Transferase 24 U/L (14-36); Bilirubin,Total 0.6 mg/dL (0.2-1.3); Blood Urea Nitrogen 27 mg/dL (7-17); Calcium 8.7 mg/dL (8.4-10.2); Carbon Dioxide 26 mmol/L (22-30); Chloride 102 mmol/L (98-107); Estimated CRCL calculation 67 ml/min; Estimated Glomerular Filt Rate > 60; Glucose 106 mg/dL (65-110); Potassium 4.2 mmol/L (3.4-5.0); Sodium 136 mmol/L (137-145)
[2022-11-06 18:42] LABS: NT Pro B Type Natriuretic Pept 621 pg/mL (19.9-100); Troponin I 0.019 ng/mL (0.000-0.034)
[2022-11-06 18:51] LABS: D Dimer 0.91 ug/mL (<0.48)
[2022-11-06 18:54] LABS: Influenza A QL RT-PCR Negative (Negative); Influenza B QL RT-PCR Negative (Negative); SARS-CoV-2 RNA PCR Negative
[2022-11-06 19:35] LABS: Magnesium 2.1 mg/dL (1.6-2.3)
[2022-11-06 20:15] VITALS: BP 102/64; PULSE 94; RESP 16; O2SAT 100
[2022-11-06 21:16] VITALS: BP 98/57; PULSE 102; RESP 18; O2SAT 98
--- NOTE | 2022-11-06 21:22 | PM.IMHP ---
H&P: HPI History of Present Illness Date/Time: 11/06/22 21:22 Chief Complaint: Atrial fibrillation Narrative: This is a 77-year-old female past medical history significant for morbid obesity, diastolic heart failure, hypertension, degenerative joint disease, gastroesophageal reflux disease, obstructive sleep apnea. Patient comes to the emergency room after she was checking her blood pressure at home went noticed that her heart rate was in the 150's patient denied at that point any chest pressure or chest pain or fluttery sensation or palpitations no dizziness, no lightheadedness, no near-syncope or syncope, no nausea, no vomiting, no epigastric pain no changes in her vision, no leg swelling, patient has been in her usual state of health up until this time no fevers, no rigors, no chills, no cough, no sputum production. Patient returned to from a 7 day vacation in the [facility] and was in a [address] the way back home denies any bilateral calves pain, no shortness of breath. Patient was found to be in atrial fibrillation with rapid ventricular response. Patient is been placed in observation for further evaluation, management and treatment. Review of Systems Review of Systems: Fast heart rate. Constitutional: Constitutional: Denies chills, Denies fatigue, Denies fever(s), Denies lethargy, Denies malaise, Denies night sweats and Denies weakness Eyes: Eyes: Denies change in vision ENT: Denies dysphagia, Denies vertigo, Denies dizziness and Denies odynophagia Cardiovascular: Cardiovascular: Denies chest pain, Denies syncope, Reports rapid heart rate, Reports irregular heart rhythm, Denies leg edema, Denies palpitations, Denies dyspnea and Reports other (Heart rate was noted on blood pressure machine device) Respiratory: Respiratory: Denies chest congestion, Denies cough, Denies pain on inspiration and Denies dyspnea on exertion Gastrointestinal: Gastrointestinal: Denies abdominal pain, Denies dyspepsia, Denies heartburn, Denies diarrhea, Denies nausea and Denies vomiting Genitourinary: Genitourinary: Denies dysuria Musculoskeletal: Musculoskeletal: Denies back pain, Denies myalgias, Denies joint swelling, Reports muscle cramps and Denies muscle weakness Integumentary/Breasts: Skin/Breast: Denies rash Neurologic: Denies vertigo, Denies dizziness, Denies focal weakness and Denies Sensory deficit (Neuro) Psychiatric: Psychiatric: Reports no additional psychiatric complaints and Reports as per HPI Endocrine: Endocrine: Denies cold intolerance, Denies flushing, Denies heat intolerance, Denies polyphagia, Denies polydipsia and Denies palpitations Hematologic/Lymphatic: Hematologic/Lymphatic: Reports no additional hematologic/lymphatic complaints and Reports as per HPI Allergic/Immunologic: Allergic/Immunologic: Reports no additional allergic/immunologic complaints and Reports as per HPI PMFSH Past Medical History Medical History Bilateral knee pain Depression Environmental allergies Essential (primary) hypertension GERD without esophagitis Heart murmur Histoplasmosis Treated between 1985 and 1988. Lumbar spondylosis Morbid obesity Normal colonoscopy (~07/2019) Overactive bladder Sleep apnea Vitamin D deficiency Surgical History Surgical History History of foot surgery (~02/2017) Left History of gastric bypass (~1999) History of tubal ligation (~1979) Family History Family History Mother Family history of arthritis Family history of diabetes mellitus in first degree relative Family history of congestive heart failure Family history of heart disease in male family member before age 55 Carcinoma of colon Sibling Family history of diabetes mellitus in first degree relative Family history of coronary artery disease Family hi
[2022-11-06 22:45] VITALS: BP 99/56; PULSE 97; RESP 22; O2SAT 98
[2022-11-06 23:14] VITALS: BP 106/77; PULSE 92; RESP 14; O2SAT 99
[2022-11-06 23:40] VITALS: BP 114/72; PULSE 94; RESP 16; O2SAT 98
[2022-11-07] VITALS (13 sets, daily range): BP systolic 87–136; BP diastolic 45–92; PULSE 78–139; RESP 14–20; TEMP 35.8–36.6; O2SAT 95–98; BMI 55.7
--- NOTE | 2022-11-07 01:09 | ADMGEN ---
This patient, Cassy Luna, was admitted to 3 [facility] Surg Room 304-02. Patient/family oriented to hospital policies and general routines including ID bracelet, bed and alarms, visiting hours, pain management, procedures, bathroom and other care routines, personal items, smoking policy, room service/diet, and visiting hours. Information on how to activate the Rapid Response Team has been discussed. Patient/Family are encouraged to report perceived risks to care and to ask questions if they do not understand what they are told or what they should do.
--- NOTE | 2022-11-07 01:09 | PC.NURSE ---
Patient received to unit. Denies any CP, SOB or any other symptoms at present. Patient HR in 90s in NSR. Patient placed into bed and given call humphries. Oriented to room and when to call out for increased symptoms. Patient denies any needs at this time. Patient stable and resting at present.
[2022-11-07] MEDS: traMADol HCL (*CRX) 50 MG TABLET PO ×2 (03:55→12:01)
[2022-11-07] MEDS: METOPROLOL TARTRATE INJ 5 MG/5 ML VIAL IV PUSH (03:55)
--- NOTE | 2022-11-07 04:35 | PC.NURSE ---
Patient HR jumped into 160s at rest during patient sleeping. Patient was asymptomatic and BP stable. process development chemist, Dr. Mulligan and management supervisor was notified of situation and orders were received. Lopressor 5mg IVP given and patient instructed to bear down. HR dipped briefly into the 130-140s but now starting to increase again. Orders received to transfer to IMU by Dr. Mulligan. BP 114/62. Patient remains asymptomatic but remains in afib RVR with frequent PVCs at rates sustained in 150s and 160s. Patient notified of condition and that it would require her immediate transfer. No other orders or changes at this time. Patient pending transport once this RN can give report.
--- NOTE | 2022-11-07 05:07 | PC.NURSE ---
This patient, Cassy Luna, was received from [ 3rd med surg room 304 ] on 11/07/22 at 0507. Patient/family oriented to unit policies and routines
--- NOTE | 2022-11-07 05:09 | PC.NURSE ---
Patient report given to IMU nurse and patient transferred to 210 IMU without any incident.
[2022-11-07] MEDS: dilTIAZem 100 MG/100 ML 100 MG/100 ML BAG IV CONT (05:11)
--- NOTE | 2022-11-07 07:43 | PM.IMPN ---
Progress Note: A&P Assessment and Plan (1) Atrial fibrillation with RVR: Code(s): I48.91 - Unspecified atrial fibrillation Status: Acute Assessment and Plan: Unsure of etiology, given dose of Lovenox, Cardiology consult pending Heart rate in the 130s on a diltiazem drip (2) Congestive heart failure: Code(s): I50.9 - Heart failure, unspecified Status: Acute Assessment and Plan: Patient appears euvolemic Daily intake and output (3) Obstructive sleep apnea: Code(s): G47.33 - Obstructive sleep apnea (adult) (pediatric) Status: Acute Assessment and Plan: Unclear if use of CPAP at nighttime (4) Morbid (severe) obesity due to excess calories: Code(s): E66.01 - Morbid (severe) obesity due to excess calories Status: Acute Assessment and Plan: Lifestyle and diet modifications (5) Bilateral knee pain: Qualifiers: Chronicity: chronic Qualified Code(s): M25.561 - Pain in right knee; M25.562 - Pain in left knee; G89.29 - Other chronic pain Code(s): M25.561 - Pain in right knee; M25.562 - Pain in left knee Status: Chronic Assessment and Plan: Tylenol as needed Plan DVT prophylaxis with Lovenox GI prophylaxis with PPI Code status full code Subjective Date/time seen: 11/07/22 07:43 Interval history: No overnight events noted. No chest pain or shortness of breath. No nausea, vomiting or diarrhea. No fevers or chills. Review of Systems Review of Systems: 12 point review of systems was assessed and was negative except as noted in the HPI Exam Narrative: General: No acute distress, alert and oriented per baseline HEENT: Atraumatic, normocephalic, mucous membranes moist CV: Regular rate and rhythm, S1, S2 Lungs: Clear to auscultation bilaterally, no rales or crackles noted, no wheezes, good air entry Abdomen: Soft, nontender, nondistended Extremities: Normal to inspection Skin: No rashes noted, no lesions or wounds seen Psych: Euthymic, normal affect Objective Data Vital Signs Vital Signs: Vital Signs - 24 hr 11/06/22 14:35 11/06/22 22:45 11/06/22 23:14 Temperature 97.6 F Pulse Rate 127 H 97 92 Respiratory Rate 20 22 H 14 Blood Pressure 105/69 99/56 L 106/77 Pulse Oximetry 100 98 99 Oxygen Delivery Room Air 11/06/22 20:15 11/06/22 21:16 11/06/22 23:40 Temperature Pulse Rate 94 102 H 94 Respiratory Rate 16 18 16 Blood Pressure 102/64 98/57 L 114/72 Pulse Oximetry 100 98 98 Oxygen Delivery 11/07/22 00:05 11/07/22 04:07 11/07/22 04:09 Temperature 96.5 F L Pulse Rate 94 130 H 130 H Respiratory Rate 16 18 Blood Pressure 87/45 L 114/62 Pulse Oximetry 95 Oxygen Delivery 11/07/22 05:11 11/07/22 05:14 11/07/22 05:00 Temperature 97.9 F Pulse Rate 126 H 126 H 138 H Respiratory Rate 20 20 Blood Pressure 108/69 Pulse Oximetry 97 97 Oxygen Delivery Room Air 11/07/22 05:14 11/07/22 06:19 Temperature Pulse Rate 136 H 139 H Respiratory Rate Blood Pressure Pulse Oximetry Oxygen Delivery Intake/Output Intake/Output: Intake & Output 11/04/22 11/05/22 11/06/22 11/07/22 23:59 23:59 23:59 23:59 Intake Total 100 Balance 100 Meds/Results Medications: Active Medications Generic Name Dose Route Start Last Admin Trade Name Freq PRN Reason Stop Dose Admin Albuterol 1 puff 11/07/22 01:32 Albuterol Sulfate (*Sp) Aerosol 1 Puff INHALATION Q4H PRN shortness of breath or wheezing Amitriptyline HCl 25 mg 11/07/22 21:00 Amitriptyline Hcl 25 Mg Tablet PO QHS LEONARD Amlodipine Besylate 10 mg 11/07/22 21:00 Amlodipine Besylate 5 Mg Tablet PO HS LEONARD Baclofen 10 mg 11/07/22 01:32 Baclofen 10 Mg Tablet PO TID PRN muscle spasm Celecoxib 200 mg 11/07/22 09:00 Celecoxib 200 Mg Capsule PO BID LEONARD Duloxetine HCl 60 mg 11/07/22 09:00 Duloxetine Hcl 60 Mg Capsule.
--- NOTE | 2022-11-07 09:54 | PM.CNCAR ---
Assessment and Plan Assessment and plan (1) Atrial fibrillation with RVR: Code(s): I48.91 - Unspecified atrial fibrillation Status: Acute Plan Now in sinus rhythm. Will stop Dilt drip. Increase Metoprolol from 100mg daily to 200mg daily. Start Eliquis for stroke prophylaxis. If patient remains in sinus, she could be discharged home from a cardiac standpoint later this afternoon. Patient's primary coke handling supervisor is Dr. Scott. Patient to follow-up with him after hospital discharge. History of Present Illness History of Present Illness Consult date/time: 11/07/22 09:54 Requesting physician: Jasper Sanches MD Consult reason: atrial fibrillation Reason For Visit: New onset AFIB w/RVR Narrative: We are consulted for atrial fibrillation with RVR. This is a 77-year-old female with a history of hypertension, diastolic heart failure, morbid obesity, GREG who presented to the ER with elevated heart rate. Found to be in atrial fibrillation with RVR in the ER. No chest pain, palpitations, lightheadedness/dizziness, syncope. She spontaneously converted to sinus rhythm in the ER before any medications were given. Later went back into AFIB and was started on low-dose Dilt drip. CTA negative for PE. Given dose of therapeutic Lovenox. New diagnosis of AFIB for the patient. Patient is without any cardiac symptoms this morning. In sinus rhythm. Recent echo last month showed LVEF >70%, mild TR, moderate pulmonary hypertension. Review of Systems Review of Systems: 12-point ROS obtained. Negative, unless stated in HPI. [facility] Past Medical History Medical History Bilateral knee pain Depression Environmental allergies Essential (primary) hypertension GERD without esophagitis Heart murmur Histoplasmosis Treated between 1985 and 1988. Lumbar spondylosis Morbid obesity Normal colonoscopy (~07/2019) Overactive bladder Sleep apnea Vitamin D deficiency Surgical History Surgical History History of foot surgery (~02/2017) Left History of gastric bypass (~1999) History of tubal ligation (~1979) Family History Family History Mother Family history of arthritis Family history of diabetes mellitus in first degree relative Family history of congestive heart failure Family history of heart disease in male family member before age 55 Carcinoma of colon Sibling Family history of diabetes mellitus in first degree relative Family history of coronary artery disease Family history of heart disease in male family member before age 55 Diabetes mellitus Cerebrovascular accident Family history of malignant neoplasm of breast in first degree relative Grandparent Diabetes mellitus Asthma Family history of malignant neoplasm Carcinoma of colon Father Family history of lung cancer Other Depression Family history of obesity Hypertension Social History Social History Social History: Surrogate medical decision maker: Lissy Handy, Christiano Hayden (children). Code status: Full code. Smoking status: Unknown if ever smoked Second hand tobacco smoke exposure: No Alcohol intake: unknown Substance use: never Substance use type: does not use Lack of Transportation: No Lack of Food: Never True Current Housing: I Have Housing Concerned About Future Housing: No Difficulty Paying Gas/Electric Bills: No Difficulty Paying for Meds: No Currently Unemployed: No Education: Don't Know Difficulty w/ Childcare or Family Care: No Additional living arrangements comments: Lives in [place]. 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 Spiritual care concerns: No Meds Home Medications and Allergies Home Medications Medication Instructions Roni
[2022-11-07] MEDS: METOPROLOL SUCCINATE EXT REL 100 MG TABCR PO (11:10)
[2022-11-07] MEDS: CELECOXIB 200 MG CAPSULE PO (11:21)
[2022-11-07] MEDS: DULoxetine HCL 60 MG CAPSULE.DR PO (11:22)
[2022-11-07] MEDS: APIXABAN 5 MG TABLET PO (11:22)
[2022-11-07] MEDS: MAGNESIUM OXIDE 400 MG TABLET PO (11:23)
[2022-11-07] MEDS: IRBESARTAN 150 MG TABLET 300 MG PO (11:23)
[2022-11-07] MEDS: CHOLECALCIFEROL 1,000 UNITS TABLET 1000 UNITS PO (11:23)
[2022-11-07] MEDS: PANTOPRAZOLE 40 MG TABLET PO (11:23)
[2022-11-07] MEDS: ACETAMINOPHEN 325 MG TABLET 650 MG PO (12:01)
--- NOTE | 2022-11-07 14:18 | PM.DS ---
DS: Admitting Diagnosis Discharge Date 11/07/2022 Admitting Diagnosis AFib with RVR DS: Discharge Diagnosis Discharge Diagnosis (1) Atrial fibrillation with RVR: Code(s): I48.91 - Unspecified atrial fibrillation Status: Acute Assessment and Plan: Unsure of etiology, given dose of Lovenox, Cardiology consult pending Heart rate in the 130s on a diltiazem drip (2) Congestive heart failure: Code(s): I50.9 - Heart failure, unspecified Status: Acute Assessment and Plan: Patient appears euvolemic Daily intake and output (3) Obstructive sleep apnea: Code(s): G47.33 - Obstructive sleep apnea (adult) (pediatric) Status: Acute Assessment and Plan: Unclear if use of CPAP at nighttime (4) Morbid (severe) obesity due to excess calories: Code(s): E66.01 - Morbid (severe) obesity due to excess calories Status: Acute Assessment and Plan: Lifestyle and diet modifications (5) Bilateral knee pain: Qualifiers: Chronicity: chronic Qualified Code(s): M25.561 - Pain in right knee; M25.562 - Pain in left knee; G89.29 - Other chronic pain Code(s): M25.561 - Pain in right knee; M25.562 - Pain in left knee Status: Chronic Assessment and Plan: Tylenol as needed Plan DVT prophylaxis with Lovenox GI prophylaxis with PPI Code status full code DS: Summary Hospital Course Hospital Course: 77-year-old female past medical history significant for morbid obesity, diastolic heart failure, hypertension, degenerative joint disease, gastroesophageal reflux disease, obstructive sleep apnea.? Patient comes to the emergency room after she was checking her blood pressure at home went noticed that her heart rate was in the 150's patient denied at that point any chest pressure or chest pain or fluttery sensation or palpitations no dizziness, no lightheadedness, no near-syncope or syncope, no nausea, no vomiting, no epigastric pain no changes in her vision, no leg swelling, patient has been in her usual state of health up until this time no fevers, no rigors, no chills, no cough, no sputum production.? Patient returned to from a 7 day vacation in the [facility] and was in a [address] ride on the way back home denies any bilateral calves pain, no shortness of breath.? Patient was found to be in atrial fibrillation with rapid ventricular response.? Cardiology was consulted and increased her dose of metoprolol from 50 mg daily to 100 mg daily. She was discharged in stable condition with close outpatient follow-up by her flute polisher. Time Spent with Patient Time attestation: Total time spent providing and/or coordinating discharge services: Exam Narrative: General: No acute distress, alert and oriented per baseline HEENT: Atraumatic, normocephalic, mucous membranes moist CV: Irregularly irregular, S1, S2 Lungs: Clear to auscultation bilaterally, no rales or crackles noted, no wheezes, good air entry Abdomen: Soft, nontender, nondistended Extremities: Normal to inspection Skin: No rashes noted, no lesions or wounds seen Psych: Euthymic, normal affect DS: Data Data Completed and Pending Labs on day of discharge: Labs from last 24 hours 11/06/22 11/06/22 11/06/22 18:12 18:12 18:12 WBC RBC Hgb Hct MCV MCH MCHC RDW Plt Count MPV Immature Gran % (Auto) Neut % (Auto) Lymph % (Auto) Dickinson % (Auto) Eos % (Auto) Baso % (Auto) Lymph # (Auto) Dickinson # (Auto) Eos # (Auto) Baso # (Auto) Abs Immat Gran (auto) Absolute Neuts (auto) Absolute Nucleated RBC Nucleated RBC % PT INR APTT D-Dimer 0.91 H Sodium 136 L Potassium 4.2 Chloride 102 Carbon Dioxide 26 Anion Gap 8 BUN 27 H D Creatinine 0.90 Estim Creat Clear Calc 67 Estimated GFR > 60 Glucose 106 Calcium 8.7 Magnesium Total Bilirubin 0.6 AST 24 ALT
== END 2022-11-07 17:59 | disposition home or self-care (01) ==
LOC: ANHED 21:47 → ANH3MEDSUR 23:40 → ANHIMU 11-07 11:41 → ANH3MEDSUR 11-08 15:44 → ANHIMU 11-08 15:44
PROVIDERS: Emergency Medicine; Physician Assistant; Admitting Provider Internal Medicine; Emergency Provider Emergency Medicine; PCP Family Medicine; Visit Provider Student in an Organized Health Care Education/Training Program
DX: I48.91 Unspecified atrial fibrillation (principal); I50.30 Unspecified diastolic (congestive) heart failure; G47.33 Obstructive sleep apnea (adult) (pediatric); E66.01 Morbid (severe) obesity due to excess calories; M25.561 Pain in right knee; M25.562 Pain in left knee; I11.0 Hypertensive heart disease with heart failure; R00.0 Tachycardia, unspecified; R00.2 Palpitations; R03.1 Nonspecific low blood-pressure reading; R06.02 Shortness of breath; F32.A Depression, unspecified; Z20.822 Contact with and (suspected) exposure to COVID-19; R94.31 Abnormal electrocardiogram [ECG] [EKG]; R01.1 Cardiac murmur, unspecified; R79.1 Abnormal coagulation profile; K21.9 Gastro-esophageal reflux disease without esophagitis; M47.816 Spondylosis without myelopathy or radiculopathy, lumbar region; Z82.49 Family history of ischemic heart disease and other diseases of the circulatory system; Z68.43 Body mass index [BMI] 50.0-59.9, adult; N32.81 Overactive bladder; E55.9 Vitamin D deficiency, unspecified; M19.90 Unspecified osteoarthritis, unspecified site; Z79.52 Long term (current) use of systemic steroids; Z79.51 Long term (current) use of inhaled steroids; Z79.891 Long term (current) use of opiate analgesic; Z79.899 Other long term (current) drug therapy
CPT/HCPCS: 36415; 71046; 71275; 80053; 83735; 83880; 84443; 84484; 85025; 85380; 85610; 85730; 87636; 93005; 96374; 96375; 99285; A9270; G0378; Q9967

== ENCOUNTER → 2022-12-05 11:09 | Outpatient (CLI) | payer OTHER, SELFPAY ==
--- NOTE | ~2022-12-05 | XR_ITS ---
EXAM: XR shoulder RT min 2V DATE: 12/05/2022 11:30 HISTORY: Right shoulder pain . COMPARISON: 07/08/2010. FINDINGS: Decreased mineralization. No fracture or dislocation. No lytic or blastic lesion. Joint sp aces are maintained. No erosion or periosteal change. Soft tissues within normal limits. IMPRESSION: Unremarkable right shoulder radiograph findings. Reviewed, dictated and finalized at location K. INVESTIGATOR
== END ==
PROVIDERS: PCP Family Medicine; Visit Provider Nurse Practitioner Family
DX: M25.511 Pain in right shoulder (principal)
CPT/HCPCS: 73030

== ENCOUNTER 2023-01-02 00:50 | Day surgery (SDC) | payer OTHER, SELFPAY ==
[2022-12-26 13:40] VITALS: BMI 53.5
[2023-01-02 06:16] VITALS: BP 136/70; PULSE 90; RESP 17; TEMP 36.1; O2SAT 96; BMI 53.3
[2023-01-02] MEDS: LACTATED RINGERS 1,000 ML 150 ML IV CONT (06:30)
--- NOTE | 2023-01-02 07:23 | PM.HPGS ---
History of Present Illness History of Present Illness Consent: Risks, benefits, and alternatives have been discussed and questions answered. Patient agrees to proceed with procedure. Chief complaint: melena Narrative: Cassy Luna is a 77 year old female with episode of rectal bleeding few weeks ago, had colonoscopy in 2019 Review of Systems Constitutional: Constitutional: Denies headache(s) and Denies weakness Eyes: Eyes: Denies blurry vision ENT: Reports Normal hearing present, Denies headache(s) and Denies neck pain Cardiovascular: Cardiovascular: Denies chest pain and Denies dyspnea Respiratory: Respiratory: Denies dyspnea Gastrointestinal: Gastrointestinal: Reports no additional gastrointestinal complaints Genitourinary: Genitourinary: Denies dysuria Musculoskeletal: Musculoskeletal: Denies neck pain Integumentary/Breasts: Skin/Breast: Denies dry skin Neurologic: Reports Normal hearing present, Denies headache(s) and Denies weakness Psychiatric: Psychiatric: Denies anxiety Endocrine: Endocrine: Denies change in body appearance Hematologic/Lymphatic: Hematologic/Lymphatic: Denies easy bleeding Allergic/Immunologic: Allergic/Immunologic: Denies urticaria PMFSH Past Medical History Medical History (Updated 01/02/23 @ 07:24 by Juan Jaramillo MD) Afib Bilateral knee pain Cervical spondylosis Depression Environmental allergies Essential (primary) hypertension Family history of type 1 MEN GERD without esophagitis Heart murmur Histoplasmosis Treated between 1985 and 1988. Lumbar spondylosis Morbid obesity Normal colonoscopy (~07/2019) Overactive bladder Rectal bleeding Vitamin D deficiency Surgical History Surgical History History of foot surgery (~02/2017) Left History of gastric bypass (~1999) History of tubal ligation (~1979) Family History Family History Mother Family history of arthritis Family history of diabetes mellitus in first degree relative Family history of congestive heart failure Family history of heart disease in male family member before age 55 Carcinoma of colon Sibling Family history of diabetes mellitus in first degree relative Family history of coronary artery disease Family history of heart disease in male family member before age 55 Diabetes mellitus Cerebrovascular accident Family history of malignant neoplasm of breast in first degree relative Grandparent Diabetes mellitus Asthma Family history of malignant neoplasm Carcinoma of colon Father Family history of lung cancer Other Depression Family history of obesity Hypertension Social History Social History Social History: Surrogate medical decision maker: Lissy Handy, Ninfa Vail, Christiano Solorio (children). Code status: Full code. Smoking status: Never smoker Second hand tobacco smoke exposure: No Alcohol intake: never Substance use: never Substance use type: does not use Lack of Transportation: No Lack of Food: Never True Current Housing: I Have Housing Concerned About Future Housing: No Difficulty Paying Gas/Electric Bills: No Difficulty Paying for Meds: No Currently Unemployed: No Education: Don't Know Difficulty w/ Childcare or Family Care: No Living arrangements: with family Additional living arrangements comments: Lives in [place]. 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 Spiritual care concerns: No Meds Home Medications and Allergies Home Medications Medication Instructions Recorded Confirmed Type irbesartan 300 mg tablet 300 mg PO DAILY 07/18/21 01/02/23 History prednisone 5 mg tablet 5 - 15 mg PO DAILY PRN PAIN 07/19/22 01/02/23 History tramadol 50 mg tablet 50 mg PO TID PRN pain 07/19/22
--- NOTE | 2023-01-02 07:27 | WPDANESEPPF ---
Anes - Initial Pre Proc Eval Procedure: Operation Date: 01/02/23 07:30 Proposed Procedures p Colonoscopy - Juan Jaramillo MD Date/Time: 01/02/23 07:27 Surgeon: Juan Jaramillo MD Pre Op Diagnosis: melena Patient Data Age: 77 Gender: F Height: 1.63 m Weight: 140.9 kg Last Vital Signs Temp 97 F L 01/02/23 06:16 Pulse 90 01/02/23 06:16 Resp 17 01/02/23 06:16 BP 136/70 01/02/23 06:16 Pulse Ox 96 01/02/23 06:16 O2 Del Method Room Air 01/02/23 06:16 Allergies Allergy/AdvReac Type Severity Reaction Status Date / Time No Known Allergies Allergy Verified 01/02/23 06:14 Home Medications Medication Instructions Recorded Confirmed Type irbesartan 300 mg tablet 300 mg PO DAILY 07/18/21 01/02/23 History prednisone 5 mg tablet 5 - 15 mg PO DAILY PRN PAIN 07/19/22 01/02/23 History tramadol 50 mg tablet 50 mg PO TID PRN pain 07/19/22 01/02/23 History cetirizine 10 mg tablet 10 mg PO DAILY PRN allergy symptoms 10/25/22 01/02/23 History cholecalciferol (vitamin D3) 1,250 1,250 mcg PO WEEKLY #12 tabs 10/26/22 01/02/23 Rx mcg (50,000 unit) tablet metoprolol succinate 100 mg 100 mg PO DAILY 1 month #30 tabs 11/07/22 01/02/23 Rx tablet,extended release 24 hr (Toprol XL) duloxetine 60 mg capsule,delayed 60 mg PO DAILY #90 caps 11/08/22 01/02/23 Rx release potassium chloride 20 mEq 20 meq PO DAILY #90 tabs 11/08/22 01/02/23 Rx tablet,extended release amitriptyline 25 mg tablet 25 mg PO QHS PRN sleep #90 tabs 11/24/22 01/02/23 Rx albuterol sulfate 90 mcg/actuation 1 inh inhalation Q4H PRN shortness 12/18/22 01/02/23 Rx aerosol inhaler of breath or wheezing #8.5 grams amlodipine 10 mg tablet 10 mg PO .PRN 12/18/22 01/02/23 History apixaban 5 mg tablet (Eliquis) 5 mg PO Q12H 12/18/22 01/02/23 History omeprazole 20 mg capsule,delayed 20 mg PO DAILY #90 caps 12/18/22 01/02/23 Rx release semaglutide 0.25 mg or 0.5 mg (2 0.25 mg (0.2 mL) subcut WEEKLY 12/18/22 01/02/23 Rx mg/1.5 mL) subcutaneous pen #1.5 mL injector (Ozempic) acetaminophen 500 mg tablet 500 mg PO TID PRN Pain 12/26/22 01/02/23 History amitriptyline 10 mg tablet 10 mg PO HS PRN Insomnia 12/26/22 01/02/23 History baclofen 10 mg tablet 10 mg PO TID PRN muscle spasm #90 12/26/22 01/02/23 Rx tabs fluticasone propionate 50 1 spray intranasal DAILY PRN 12/26/22 01/02/23 History mcg/actuation nasal Allergy Symptoms spray,suspension (Flonase Allergy Relief) furosemide 20 mg tablet 20 mg PO TID 12/26/22 01/02/23 History hydrocodone 10 mg-acetaminophen 1 tablet PO TID PRN Pain 12/26/22 01/02/23 History 325 mg tablet magnesium 250 mg tablet 250 mg PO DAILY 12/26/22 01/02/23 History Patient hx anesthesia problems: none Family hx anesthesia problems: none Results Review: All pre-operative results and documents have been reviewed as part of the pre-operative evaluation. [facility] Past Medical History Medical History (Updated 01/02/23 @ 07:24 by Juan Jaramillo MD) Afib Bilateral knee pain Cervical spondylosis Depression Environmental allergies Essential (primary) hypertension Family history of type 1 MEN GERD without esophagitis Heart murmur Histoplasmosis Treated between 1985 and 1988. Lumbar spondylosis Morbid obesity Normal colonoscopy (~07/2019) Overactive bladder Rectal bleeding Vitamin D deficiency Surgical History Surgical History History of foot surgery (~02/2017) Left History of gastric bypass (~1999) History of tubal ligation (~1979) Family History Family History Mother Family history of arthritis Family history of diabetes mellitus in first degree relative Family history of congestive heart failure Family history of heart disease in male family member before age 55 Carcinoma of colon Sibling Family history of diabetes mellitus
[2023-01-02 07:59] VITALS: BP 97/42; PULSE 86; RESP 25; O2SAT 99
[2023-01-02 08:09] VITALS: BP 110/60; PULSE 78; RESP 25; O2SAT 100
[2023-01-02 08:19] VITALS: BP 108/64; PULSE 81; RESP 26; O2SAT 100
== END 2023-01-02 08:28 | disposition home or self-care (01) ==
PROVIDERS: PCP Family Medicine; Visit Provider Internal Medicine Gastroenterology
PROC: 0DJD8ZZ Inspection of Lower Intestinal Tract, Via Natural or Artificial Opening Endoscopic (ICD-10-PCS; CPT 45378; principal; 2023-01-02 07:30)
DX: K62.5 Hemorrhage of anus and rectum (principal); D12.3 Benign neoplasm of transverse colon; K57.30 Diverticulosis of large intestine without perforation or abscess without bleeding; K21.9 Gastro-esophageal reflux disease without esophagitis; I48.20 Chronic atrial fibrillation, unspecified; I10 Essential (primary) hypertension; E55.9 Vitamin D deficiency, unspecified; Z98.84 Bariatric surgery status; Z79.01 Long term (current) use of anticoagulants; K64.8 Other hemorrhoids
CPT/HCPCS: 45385; 45380; 88305; J2704; J7120

== ENCOUNTER 2023-02-26 11:55 | Outpatient (CLI) | payer OTHER, SELFPAY ==
[2023-02-26 19:13] LABS: Basophils Absolute Auto 0.1 K/mm3 (0.0-0.1); Basophils Percent Auto 0.6 % (0.2-1.2); Eosinophils Absolute Auto 0.1 K/mm3 (0-0.3); Eosinophils Percent Auto 0.7 % (0-4.4); Hematocrit 42.3 % (37.0-47.0); Hemoglobin 13.2 g/dL (12.0-15.0); Immature Granulocyte Absolute 0.05 K/mm3 (0.00-0.031); Immature Granulocyte Percent A 0.5 % (0-0.5); Lymphocytes Absolute Auto 1.03 K/mm3 (0.9-3.2); Lymphocytes Percent Auto 10.5 % (18.3-44.2); Mean Corpuscular HGB Conc 31.2 g/dl (32-36); Mean Corpuscular Hemoglobin 32.1 pg (26-34); Mean Corpuscular Volume 102.9 fl (80-100); Mean Platelet Volume 12.4 fl (7.4-10.4); Monocytes Absolute Auto 0.7 K/mm3 (0.1-0.6); Monocytes Percent Auto 7.2 % (2.6-8.5); Neutrophils Absolute Auto 7.9 K/mm3 (1.3-6.7); Neutrophils Percent Auto 80.5 % (45.5-73.1); Platelet Count Result 222 k/mm3 (150-375); Red Blood Count 4.11 M/mm3 (4.2-5.4); Red Cell Distribution Width 14.5 % (11.5-14.5); White Blood Count 9.8 K/mm3 (4.5-10.0)
[2023-02-26 19:40] LABS: Alanine Aminotransferase 19 U/L (6-35); Albumin Level 4.2 g/dL (3.5-5.1); Alkaline Phosphatase 58 U/L (38-126); Anion Gap 7 mmol/L (8-16); Aspartate Amino Transferase 46 U/L (14-36); Blood Urea Nitrogen 21 mg/dL (7-17); Carbon Dioxide 28 mmol/L (22-30); Chloride 99 mmol/L (98-107); Estimated Glomerular Filt Rate > 60; Glucose 89 mg/dL (65-110); Potassium 3.6 mmol/L (3.4-5.0); Sodium 134 mmol/L (137-145)
== END 2023-02-26 11:56 | disposition home or self-care (01) ==
LOC: ANHGOSHLAB 11:57
PROVIDERS: PCP Family Medicine; Visit Provider Family Medicine
DX: I10 Essential (primary) hypertension (principal); E87.6 Hypokalemia; Z79.899 Other long term (current) drug therapy; F32.9 Major depressive disorder, single episode, unspecified
CPT/HCPCS: 36415; 80053; 85025